=== PATIENT | male | born 1960 | race Caucasian/White ===

== ENCOUNTER 2019-12-15 20:19 | Inpatient (IN) | payer OTHER ==
[2019-12-15 20:33] VITALS: BMI 37.0
--- NOTE | 2019-12-15 20:36 | PDOC ---
Attending Attestation - Resident Resident Name: RashadRenan - ED Attending Attestation I have performed the following: I have examined & evaluated the patient, The case was reviewed & discussed with the resident, I agree w/resident's findings & plan - HPI HPI: 12/15/19 22:41 see resident hpi - Physicial Exam PE: 12/15/19 22:42 see resident exam - Medical Decision Making 12/15/19 22:42 59-year-old male sent from a care home facility with acute anemia requiring transfusion Patient has history of GI bleed in the past while on anticoagulation He has no additional complaints at this time Plan for admission for transfusion, coordinated with nephrology as patient is hemodialysis dependent Discharge - Discharge Information Problems reviewed: Yes Clinical Impression/Diagnosis: Anemia, Hemodialysis status Condition: Fair - Follow up/Referral Referrals: Jass Iraheta MD [Primary Care Provider] - - Patient Discharge Instructions - Post Discharge Activity
[2019-12-15 21:33] LABS: BASO % 0.7 % (0-2.0); EOS % 6.5 % (0-4.5); HEMATOCRIT 17.7 % (35.4-49); LYMPH % 35.4 % (8-40); MCH 30.9 pg (25.7-33.7); MCHC 34.3 g/dl (32.0-35.9); MEAN PLT VOLUME 8.8 fl (7.5-11.1); MONO % 11.5 % (3.8-10.2); NEUT % 45.9 % (42.8-82.8); PLATELET COUNT 86 K/MM3 (134-434); RBC 1.97 M/mm3 (4.00-5.60); RDW 13.8 % (11.9-15.9); WHITE BLOOD COUNT 4.5 K/mm3 (4.0-10.0)
[2019-12-15 21:41] LABS: HEMOGLOBIN 6.1 GM/dL (11.7-16.9)
[2019-12-15 21:50] LABS: INR 1.07 (0.83-1.09); PROTHROMBIN TIME (PATIENT) 12.6 SEC (9.7-13.0)
[2019-12-15 21:53] LABS: ACTIVATED PTT 22.2 SECONDS (25.2-36.5)
[2019-12-15 22:11] LABS: ALBUMIN 2.7 g/dl (3.4-5.0); ALK PHOS 90 U/L (45-117); BLOOD UREA NITROGEN 18.1 mg/dL (7-18); CALCIUM 8.2 mg/dL (8.5-10.1); CHLORIDE 98 mmol/L (98-107); CO2 29 mmol/L (21-32); CREATININE 1.9 mg/dL (0.55-1.3); GLUCOSE,RANDOM 117 mg/dL (74-106); SGOT/AST 28 U/L (15-37); SGPT/ALT 42 U/L (13-61); SODIUM 136 mmol/L (136-145); TOT PROT 5.9 g/dl (6.4-8.2)
[2019-12-15 22:13] LABS: ANION GAP 9 MMOL/L (8-16); BILIRUBIN,TOTAL 0.4 mg/dL (0.2-1)
[2019-12-15 22:18] LABS: POTASSIUM 2.9 mmol/L (3.5-5.1)
--- NOTE | 2019-12-15 22:29 | PDOC ---
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 Pt is otherwise asymptomatic - denies CP, dizziness, SOB, cough, urinary changes, fall, loss of consciousnes, palpitations, changes in strength or sensation, fevers, chills, nausea and vomiting. Pt was admitted [facility] in October and found to have MRSA endocarditis with septic emboli from AICD and pneumonia. Pt was then transferred to [facility]. At [facility] his AICD was removed; was found to have ALLYSON with possible ESRD and started on HD; and found to be anemic and have blood in the stool and was given 3 rounds of transfusion of pRBCs. Pt reports he was deconditioned and generally weak after his long hospitalization and was sent to his current rehab facility. Prior to his hospitalization, pt was ambulatory and lived alone his apartment in [place]. PMHX: as in [facility] PSHX: as in [facility] Meds: as per rehab facility charts Allergies: bactrim, pip-tazo, sulfamethaxazole Tob: denies Etoh: 1 or 2 drinks in the course of a year Rec drugs: denies PCP: Jass GRIMES GENERAL/CONSTITUTIONAL: No fever or chills. No weakness. HEAD, EYES, EARS, NOSE AND THROAT: No change in vision. No ear pain or discharge. No sore throat. CARDIOVASCULAR: No chest pain or shortness of breath RESPIRATORY: No cough, wheezing, or hemoptysis. GASTROINTESTINAL: No nausea, vomiting, diarrhea or constipation. GENITOURINARY: No dysuria, frequency, or change in urination. MUSCULOSKELETAL: No joint or muscle swelling or pain. No neck or back pain. SKIN: No rash NEUROLOGIC: No headache, vertigo, loss of consciousness, or change in strength /sensation. ENDOCRINE: No increased thirst. No abnormal weight change HEMATOLOGIC/LYMPHATIC: No easy bleeding, or history of blood clots. + anemia ALLERGIC/IMMUNOLOGIC: No hives or skin allergy. PE GENERAL: Awake, alert, and fully oriented, in no acute distress HEAD: No signs of trauma, normocephalic, atraumatic EYES: PERRLA, EOMI, sclera anicteric, conjunctiva clear ENT: Auricles normal inspection, hearing grossly normal, nares patent, oropharynx clear withoutexudates. Moist mucosa NECK: Normal ROM, supple, no lymphadenopathy, JVD, or masses. LUNGS: No distress, speaks full sentences, clear to auscultation bilaterally HEART: Regular rate and rhythm, normal S1 and S2, no murmurs, rubs or gallops, peripheral pulses normal and equal bilaterally. ABDOMEN: Soft, nontender, normoactive bowel sounds. No guarding, no rebound. No masses ANTHONY: external exam with some discoloration sacral area, skin tags, no external hemorrhoids; good rectal tone; moderate amount of stool in rectal vault; no palpable masses; no narinder blood EXTREMITIES : Normal inspection, Normal range of motion, no edema. No clubbing or cyanosis. NEUROLOGICAL: Cranial nerves II through XII grossly intact. Normal speech, normal gait, no focal sensorimotor deficits SKIN: Warm, Dry, normal turgor, no rashes or lesions noted 12/15/19 21:43 12/15/19 22:30 12/15/19 22:36 Past History - Medical History Allergies/Adverse Reactions: Allergies Allergy/AdvReac Type Severity Reaction Status Date / Time piperacillin [From Zosyn] Allergy Verified 12/16/19 19:56 sulfamethoxazole Allergy Verified 12/16/19 19:56 [From Bactrim] tazobactam [From Zosyn] Allergy Verified 12/16/19 19:56 trimethoprim [From Bactrim] Allergy Verified 12/16/19 19:56 Home Medications: Ambulatory Orders Acetaminophen [Tylenol] 650 mg PO QID PRN 12/15/19 Amiodarone HCl [Cordarone -] 200 mg PO DAILY 12/15/19 Linezolid [Zyvox] 600 mg PO BID 12/15/19 Magnesium Oxide [Mag-Ox -] 400 mg PO BID 12/15/19 Pantoprazole Sodium [Protonix] 40 mg PO BID 12/15/19 Tamsulosin HCl [Flomax] 0.4 mg PO DAILY 12/15/19 Vitamin B Comp W-C [Nephro-Vee -] 1 tablet PO DAILY 12/15/19 - Psycho-Social/Smoking History Smoking History: Never smoked - Substance Abuse Hx (Audit-C & DAST Scrn) How often the patient has a drink containing alcohol: Never Score: In Men: 4 or > Positive; In Women: 3 or > Positive: 0 Screen Result (Pos requires Nsg. Audit-10AR): Negative In the last yr the pt used illegal drug/Rx for NonMed reason: No Score: Yes response is considered Positive: 0 Screen Result (Positive result requires Nsg. DAST-10): Negative *Physical Exam - Vital Signs Last Vital Signs Temp Pulse Resp BP Pulse Ox 97.7 F 88 17 115/68 98 12/15/19 20:29 12/15/19 20:29 12/15/19 20:29 12/15/19 20:29 12/15/19 20:29 ED Treatment Course - LABORATORY CBC & Chemistry Diagram: 12/17/19 07:35 12/17/19 07:35 - ADDITIONAL ORDERS Additional order review: Laboratory Results 12/15/19 21:15 Stool Occult Blood Negative 12/15/19 20:50 RBC 1.97 L MCV 90.0 MCHC 34.3 RDW 13.8 MPV 8.8 Neutrophils % 45.9 Lymphocytes % 35.4 Monocytes % 11.5 H Eosinophils % 6.5 H Basophils % 0.7 Medical Decision Making - Medical Decision Making MDM 59 yo M with PMH of HTN, HLD, DM, Afib (previously with AICD), GERD, BPH, 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 DDX including but not limited to: lower GI bleed vs upper GI bleed vs bleeding from another source W/U: - CBC, CMP, coags - stool for occult blood - negative - Hb 6.1; K 2.9 - Will get in touch with nephrology regarding how much to transfuse before dialysis 12/15/19 22:36 12/15/19 22:43 Discharge - Discharge Information Problems reviewed: Yes Clinical Impression/Diagnosis: Anemia, Hemodialysis status Condition: Fair - Admission Yes - Follow up/Referral - Patient Discharge Instructions - Post Discharge Activity
--- NOTE | 2019-12-15 22:55 | PDOC ---
*Physical Exam - Vital Signs Last Vital Signs Temp Pulse Resp BP Pulse Ox 97.7 F 88 17 115/68 98 12/15/19 20:29 12/15/19 20:29 12/15/19 20:29 12/15/19 20:29 12/15/19 20:29 - Physical Exam 12/15/19 22:53 sign out was given by mid team. [facility] oncall neprologist Dr. Gonzalez, and his neurologist Dr. Coughlin. Dr. Galvin called back suggesting 1 L of transfusion for now. Then another unit in the morning. ED Treatment Course - LABORATORY CBC & Chemistry Diagram: 12/16/19 06:35 12/16/19 06:35 - ADDITIONAL ORDERS Additional order review: Laboratory Results 12/15/19 12/15/19 12/15/19 21:15 20:50 20:50 PT with INR 12.60 INR 1.07 PTT (Actin FS) 22.2 L Sodium 136 Potassium 2.9 L* Chloride 98 Carbon Dioxide 29 Anion Gap 9 BUN 18.1 H Creatinine 1.9 H Est GFR (CKD-EPI)AfAm 43.14 Est GFR (CKD-EPI)NonAf 37.22 Random Glucose 117 H Calcium 8.2 L Total Bilirubin 0.4 AST 28 ALT 42 Alkaline Phosphatase 90 Troponin I < 0.02 Total Protein 5.9 L Albumin 2.7 L Stool Occult Blood Negative 12/15/19 20:50 RBC 1.97 L MCV 90.0 MCHC 34.3 RDW 13.8 MPV 8.8 Neutrophils % 45.9 Lymphocytes % 35.4 Monocytes % 11.5 H Eosinophils % 6.5 H Basophils % 0.7 Discharge - Discharge Information Problems reviewed: Yes Clinical Impression/Diagnosis: Anemia, Hemodialysis status Condition: Fair - Follow up/Referral - Patient Discharge Instructions - Post Discharge Activity
[2019-12-15] MEDS ORDERED: POTASSIUM CHLORIDE TABS 20 MEQ TABLET.ER (FP) PO ONE (23:05)
[2019-12-15] MEDS ORDERED: POTASSIUM CHLORIDE ORAL LIQUID 20 MEQ/15 ML ONE (23:07)
--- NOTE | 2019-12-16 04:32 | HP ---
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 Who presents to the ED from subacute rehab facility with low Hgb level. Patient was admitted to [facility] last October 2019, and found to have MRSA Endocarditis with Septic Emboli from AICD and Pneumonia. Patient was then transferred to [facility]. At [facility], his AICD was removed; was found to have ALLYSON with possible ESRD and started on HD; and found to be anemic and have blood in the stool and was given 3 rounds of transfusion of pRBCs. Patient repo rts that he was deconditioned and generally weak after his long hospitalization and was sent to his current rehab facility. Prior to his hospitalization, pt was ambulatory and lived alone his apartment in [place]. Patient denies fever, chills, SOB, dizziness, LAKHANI, CP, palpitations, AP, N/V/D, melena, hematochezia, hematuria, dysuria. History Source: Patient, Transfer Record Limitations to Obtaining History: No Limitations - Past Medical History Cardiovascular: Yes: AFIB, HTN, Hyperlipdemia, Other (Endocarditis) Gastrointestinal: Yes: GERD Renal/: Yes: BPH, Hemodialysis Infectious Disease: Yes: MRSA - Past Surgical History Past Surgical History: Yes: AICD Additional Past Surgical History: AICD removal Permacath - Smoking History Smoking history: Never smoked - Alcohol/Substance Use Hx Alcohol Use: No History of Substance Use: reports: None - Social History Usual Living Arrangement: Yes: Shelter (Rehab) ADL: Support Services History of Recent Travel: No Home Medications - Allergies Allergies/Adverse Reactions: Allergies Allergy/AdvReac Type Severity Reaction Status Date / Time No Known Allergies Allergy Verified 12/15/19 20:33 - Home Medications Home Medications: Ambulatory Orders Acetaminophen [Tylenol] 650 mg PO QID PRN 12/15/19 Amiodarone HCl [Cordarone -] 200 mg PO DAILY 12/15/19 Linezolid [Zyvox] 600 mg PO BID 12/15/19 Magnesium Oxide [Mag-Ox -] 400 mg PO BID 12/15/19 Pantoprazole Sodium [Protonix] 40 mg PO BID 12/15/19 Tamsulosin HCl [Flomax] 0.4 mg PO DAILY 12/15/19 Vitamin B Comp W-C [Nephro-Vee -] 1 tablet PO DAILY 12/15/19 Family Medical History Family History: Unremarkable Review of Systems - Review of Systems Constitutional: reports: Weakness Eyes: reports: No Symptoms HENT: reports: No Symptoms Neck: reports: No Symptoms Cardiovascular: reports: No Symptoms Respiratory: reports: No Symptoms Gastrointestinal: reports: No Symptoms Genitourinary: reports: No Symptoms Breasts: reports: No Symptoms Reported Musculoskeletal: reports: No Symptoms Integumentary: reports: Pallor Neurological: reports: No Symptoms Endocrine: reports: No Symptoms Hematology/Lymphatic: reports: No Symptoms Psychiatric: reports: No Symptoms Physical Examination Vital Signs: Vital Signs Temperature 98.1 F 12/16/19 01:50 Pulse Rate 88 12/16/19 04:25 Respiratory Rate 12/16/19 04:25 Blood Pressure 134/75 12/16/19 04:25 O2 Sat by Pulse Oximetry (%) 98 12/16/19 04:25 Constitutional: Yes: No Distress, Calm, Obese, Pallor Eyes: Yes: Conjunctiva Clear (pale), EOM Intact HENT: Yes: Atraumatic, Normocephalic, Rhinnorhea Neck: Yes: Trachea Midline Cardiovascular: Yes: Pulse Irregular, Murmur, S1, S2 Respiratory: Yes: Diminished (bases) Gastrointestinal: Yes: Soft, Hypoactive Bowel Sounds ...Rectal Exam: Yes: Guaiac Negative Renal/: Yes: WNL Breast(s): Yes: WNL Musculoskeletal: Yes: WNL Extremities: Yes: WNL Edema: No Peripheral Pulses WNL: Yes Neurological: Yes: WNL, Alert, Oriented, Cran Nerves II-XII Intact ...Motor Strength: WNL Psychiatric: Yes: WNL, Alert, Oriented Labs: CBC, BMP 12/15/19 20:50 12/15/19 20:50 Laboratory Results - last 24 hr 12/15/19 12/15/19 12/15/19 20:50 20:50 20:50 WBC 4.5 RBC 1.97 L Hgb 6.1 L* Hct 17.7 L MCV 90.0 MCH 30.9 MCHC 34.3 RDW 13.8 Plt Count 86 L MPV 8.8 Absolute Neuts (auto) 2.1 Neutrophils % 45.9 Lymphocytes % 35.4 Monocytes % 11.5 H Eosinophils % 6.5 H Basophils % 0.7 Nucleated RBC % 0 PT with INR 12.60 INR 1.07 PTT (Actin FS) 22.2 L Sodium 136 Potassium 2.9 L* Chloride 98 Carbon Dioxide 29 Anion Gap 9 BUN 18.1 H Creatinine 1.9 H Est GFR (CKD-EPI)AfAm 43.14 Est GFR (CKD-EPI)NonAf 37.22 Random Glucose 117 H Calcium 8.2 L Total Bilirubin 0.4 AST 28 ALT 42 Alkaline Phosphatase 90 Troponin I < 0.02 Total Protein 5.9 L Albumin 2.7 L Stool Occult Blood Blood Type Antibody Screen Crossmatch 12/15/19 12/15/19 12/15/19 21:15 23:40 23:46 WBC RBC Hgb Hct MCV MCH MCHC RDW Plt Count MPV Absolute Neuts (auto) Neutrophils % Lymphocytes % Monocytes % Eosinophils % Basophils % Nucleated RBC % PT with INR INR PTT (Actin FS) Sodium Potassium Chloride Carbon Dioxide Anion Gap BUN Creatinine Est GFR (CKD-EPI)AfAm Est GFR (CKD-EPI)NonAf Random Glucose Calcium Total Bilirubin AST ALT Alkaline Phosphatase Troponin I Total Protein Albumin Stool Occult Blood Negative Blood Type A POSITIVE A POSITIVE Antibody Screen Negative Crossmatch See Detail Intake & Output 12/13/19 12/14/19 12/15/19 12/16/19 23:59 23:59 23:59 23:59 Weight 120.656 kg Current Medications Generic Name Dose Route Start Last Admin Trade Name Freq PRN Reason Stop Dose Admin Amiodarone HCl 200 mg 12/16/19 10:00 Cordarone - PO DAILY [facility]EDRIC Linezolid 600 mg 12/16/19 10:00 Zyvox (Restricted To Id) - PO BID [facility]RIC Magnesium Oxide 400 mg 12/16/19 10:00 Mag-Ox - PO BID CEDRIC Multivit/Ca Carb/B Cmplx/FA/Prenat 1 tablet 12/16/19 10:00 Nephro-Vee - PO DAILY CEDRIC Pantoprazole Sodium 40 mg 12/16/19 10:00 Protonix - PO BID [facility] Tamsulosin HCl 0.4 mg 12/16/19 08:30 Flomax - PO DAILY@0830 [facility] Imaging - Results Chest X-ray: Report Reviewed, Image Reviewed EKG: Image Reviewed Problem List - Problems (1) Anemia Code(s): D64.9 - ANEMIA, UNSPECIFIED (2) ESRD (end stage renal disease) on dialysis Code(s): N18.6 - END STAGE RENAL DISEASE; Z99.2 - DEPENDENCE ON RENAL DIALYSIS (3) HTN (hypertension) Code(s): I10 - ESSENTIAL (PRIMARY) HYPERTENSION (4) HLD (hyperlipidemia) Code(s): E78.5 - HYPERLIPIDEMIA, UNSPECIFIED (5) Diabetes mellitus Code(s): E11.9 - TYPE 2 DIABETES MELLITUS WITHOUT COMPLICATIONS (6) A-fib Code(s): I48.91 - UNSPECIFIED ATRIAL FIBRILLATION (7) Hypokalemia Code(s): E87.6 - HYPOKALEMIA (8) BPH (benign prostatic hyperplasia) Code(s): N40.0 - BENIGN PROSTATIC HYPERPLASIA WITHOUT LOWER URINRY TRACT SYMP (9) Hx MRSA infection Code(s): Z86.14 - PERSONAL HISTORY OF METHICILLIN RESIS STAPH INFECTION (10) Encounter for screening laboratory testing for COVID-19 virus Code(s): Z11.59 - ENCOUNTER FOR SCREENING FOR OTHER VIRAL DISEASES Assessment/Plan This is a 59 y/o male with a PMHx of HTN, HLD, DM, Afib (previously with AICD), GERD, BPH, 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 Admitted to Telemetry for Anemia, ESRD, Hypokalemia for further evaluation of their emergent condition. Plan: Tele monitoring PRBCs pending Appreciate Nephrology consult for HD Management Stool Occult- negative Monitor CBC, CMP Chest Xray reviewed EKG reviewed BGMs Continue home meds with parameters COVID Screening- Low Risk, COVID PCR-pending, Isolation Precautions FEN- Replete lytes prn, Renal Diet DVT ppx- OOB, SCDs, Hold AC secondary to Anemia Dispo: Requires Inpatient Care Visit type - Emergency Visit Emergency Visit: Yes ED Registration Date: 12/15/19 Care time: The patient presented to the Emergency Department on the above date and was hospitalized for further evaluation of their emergent condition. - New Patient This patient is new to me today: Yes Date on this admission: 12/15/19 - Critical Care Critical Care patient: No
[2019-12-16 05:20] LABS: EPI CELLS 8 /uL (0-25.1); HYALINE CASTS 2 /uL (0-3.1); URINE APPEARANCE CLEAR; URINE BACTERIA 3 /uL (0-1359); URINE BILIRUBIN NEGATIVE (NEGATIVE); URINE COLOR YELLOW; URINE GLUCOSE (UA) NEGATIVE (NEGATIVE); URINE KETONE NEGATIVE (NEGATIVE); URINE LEUK ESTERASE 1+ (NEGATIVE); URINE NITRITE NEGATIVE (NEGATIVE); URINE PROTEIN NEGATIVE (NEGATIVE); URINE UROBILINOGEN 0.2 mg/dL (0.2-1.0); URINE WBC 30 /uL (0-25.8)
[2019-12-16 05:54] LABS: URINE RBC 177 /uL (0-23.9)
[2019-12-16 08:31] LABS: BASO % 0.7 % (0-2.0); EOS % 7.6 % (0-4.5); HEMATOCRIT 19.7 % (35.4-49); LYMPH % 32.1 % (8-40); MCH 30.9 pg (25.7-33.7); MCHC 34.3 g/dl (32.0-35.9); MEAN CELL VOLUME 89.9 fl (80-96); MEAN PLT VOLUME 8.5 fl (7.5-11.1); MONO % 14.2 % (3.8-10.2); NEUT % 45.4 % (42.8-82.8); PLATELET COUNT 86 K/MM3 (134-434); RBC 2.19 M/mm3 (4.00-5.60); RDW 13.7 % (11.9-15.9); WHITE BLOOD COUNT 4.5 K/mm3 (4.0-10.0)
[2019-12-16 08:40] LABS: HEMOGLOBIN 6.8 GM/dL (11.7-16.9)
[2019-12-16 08:41] LABS: ALBUMIN 2.7 g/dl (3.4-5.0); BILIRUBIN,TOTAL 0.8 mg/dL (0.2-1); BLOOD UREA NITROGEN 18.9 mg/dL (7-18); CALCIUM 8.1 mg/dL (8.5-10.1); CREATININE 1.9 mg/dL (0.55-1.3); TOT PROT 5.9 g/dl (6.4-8.2)
[2019-12-16] MEDS ORDERED: MAGNESIUM OXIDE 400 MG TABLET (FP) ONE (09:33)
[2019-12-16] MEDS ORDERED: PANTOPRAZOLE 40 MG TABLET ONE (09:33)
[2019-12-16] MEDS ORDERED: TAMSULOSIN HCL 0.4 MG CAP ONE (09:34)
[2019-12-16] MEDS ORDERED: AMIODARONE HCL 200 MG TABLET ONE (09:34)
[2019-12-16] MEDS: TAMSULOSIN HCL 0.4 MG CAP PO SCH (09:40)
[2019-12-16] MEDS: AMIODARONE HCL 200 MG TABLET PO SCH (09:41)
[2019-12-16] MEDS: MAGNESIUM OXIDE 400 MG TABLET (FP) PO SCH ×2 (09:41→21:34)
[2019-12-16] MEDS: PANTOPRAZOLE 40 MG TABLET PO SCH ×2 (09:41→21:34)
--- NOTE | 2019-12-16 11:21 | CON.NEP ---
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 Who presents to the ED from subacute rehab facility with low Hgb level. Patient was admitted to [facility] last October 2019, and found to have MRSA Endocarditis with Septic Emboli from AICD and Pneumonia. Patient was then transferred to [facility]. At [facility], his AICD was removed; was found to have ALLYSON with possible ESRD and started on HD; and found to be anemic and have blood in the stool and was given 3 rounds of transfusion of pRBCs. Patient reports that he was deconditioned and generally weak after his long hospitalization and was sent to his current rehab facility. Prior to his hospitalization, pt was ambulatory and lived alone his apartment in [place]. Patient denies fever, chills, SOB, dizziness, LAKHANI, CP, palpitations, AP, N/V/D, melena, hematochezia, hematuria, dysuria. Pt is known to me from [facility]. He has been on xarelto, eliquis and coumadin and has bled on all. He is chronically anticoagulated for atrial fibrillationm. Denies any complaints - Past Medical History Cardio/Vascular: Yes: AFIB, HTN, Hyperlipdemia, Other (Endocarditis) Gastrointestinal: Yes: GERD Renal/: Yes: BPH, Hemodialysis Infectious Disease: Yes: MRSA - Past Surgical History Past Surgical History: Yes: AICD - Alcohol/Substance Use Hx Alcohol Use: No History of Substance Use: reports: None - Smoking History Smoking history: Never smoked - Social History ADL: Support Services History of Recent Travel: No Home Medications - Allergies Allergies/Adverse Reactions: Allergies Allergy/AdvReac Type Severity Reaction Status Date / Time No Known Allergies Allergy Verified 12/15/19 20:33 - Home Medications Home Medications: Ambulatory Orders Acetaminophen [Tylenol] 650 mg PO QID PRN 12/15/19 Amiodarone HCl [Cordarone -] 200 mg PO DAILY 12/15/19 Linezolid [Zyvox] 600 mg PO BID 12/15/19 Magnesium Oxide [Mag-Ox -] 400 mg PO BID 12/15/19 Pantoprazole Sodium [Protonix] 40 mg PO BID 12/15/19 Tamsulosin HCl [Flomax] 0.4 mg PO DAILY 12/15/19 Vitamin B Comp W-C [Nephro-Vee -] 1 tablet PO DAILY 12/15/19 Review of Systems - Review of Systems Constitutional: reports: No Symptoms Eyes: reports: No Symptoms HENT: reports: No Symptoms Neck: reports: No Symptoms Cardiovascular: reports: No Symptoms Respiratory: reports: No Symptoms Gastrointestinal: reports: No Symptoms Genitourinary: reports: No Symptoms Nephrology Consult - Height Height: 5 ft 11 in - Weight Weight: 266 lb - BMI Body Mass Index (BMI): 37.0 - Lab Results CBC,BMP: CBC, BMP 12/16/19 06:35 12/16/19 06:35 Anion Gap: Anion Gap Anion Gap 6 MMOL/L (8-16) L 12/16/19 06:35 - Imaging Chest X-ray: Report Reviewed - Physical Examination Vital Signs: Vital Signs Temperature 97.5 F L 12/16/19 09:22 Pulse Rate 106 H 12/16/19 09:22 Respiratory Rate 18 12/16/19 09:22 Blood Pressure 140/60 12/16/19 09:22 O2 Sat by Pulse Oximetry (%) 100 12/16/19 09:22 Constitutional: Yes: Well Nourished, No Distress Eyes: Yes: Conjunctiva Clear HENT: Yes: Atraumatic, Normocephalic Neck: Yes: Supple, Trachea Midline Cardiovascular: Yes: Pulse Irregular Respiratory: Yes: Regular, CTA Bilaterally Gastrointestinal: Yes: Normal Bowel Sounds Renal/: Yes: WNL Access for Hemodialysis: Permacath Extremities: Yes: WNL Edema: No Integumentary: Yes: WNL Neurological: Yes: Alert, Oriented Psychiatric: Yes: Alert, Oriented Assessment/Plan IMPRESSION Pt developed ALLYSON when he was septic and seems to be improving. Todays creatinine is only 1.9 and 2 weeks ago was over 3. I believe he does not need HD TIW and may benefit from an incremental approach to dialytic treatments. incremental dialysis aims to protect Residual kidney function PLAN hold hd today repeat creat tomorrow I have ordered 2 units of prbc he may need hd for fluid removal if diuretic resistant or if azotemia worsens MV
[2019-12-16] MEDS ORDERED: PT OWN MED DRAWER 7, Y5N ONE (11:53)
[2019-12-16] MEDS: LINEZOLID 600 MG TABLET (RESTRICTED TO ID) PO SCH ×2 (12:16→21:34)
[2019-12-16] MEDS: VITAMIN B COMP W-C 1 EA TABLET (NEPHRO-VITE) PO SCH (12:16)
--- NOTE | 2019-12-16 12:55 | PN ---
Progress Note (short form) - Note Progress Note: received 1 unit transfusion so far. No distress, no blood in stools not on anticoagulation for atrial fibrillation as he had severe anemia in the last admission at [facility] Patient had endoscopy and colonoscopyunremarkable findiner patient Vital Signs - 24 hr 12/15/19 12/15/19 12/15/19 20:29 21:25 23:49 Temperature 97.7 F Pulse Rate 88 Pulse Rate [ 100 H Right Radial] Respiratory 17 18 Rate Blood Pressure 115/68 Blood Pressure 119/64 [Right Arm] O2 Sat by Pulse 98 98 98 Oximetry (%) 12/16/19 12/16/19 12/16/19 01:35 01:50 04:25 Temperature 98.0 F 98.1 F Pulse Rate Pulse Rate [ 101 H 97 H 88 Right Radial] Respiratory 18 18 20 Rate Blood Pressure Blood Pressure 135/88 129/83 134/75 [Right Arm] O2 Sat by Pulse 100 98 98 Oximetry (%) 12/16/19 12/16/19 12/16/19 05:36 07:52 09:22 Temperature 97.9 F 97.5 F L Pulse Rate Pulse Rate [ 96 H 106 H Right Radial] Respiratory 20 20 18 Rate Blood Pressure Blood Pressure 128/86 140/60 [Right Arm] O2 Sat by Pulse 98 97 100 Oximetry (%) Current Medications Generic Name Dose Route Start Last Admin Trade Name Freq PRN Reason Stop Dose Admin Amiodarone HCl 200 mg 12/16/19 10:00 12/16/19 09:41 Cordarone - PO 200 mg DAILY [facility] Administration Linezolid 600 mg 12/16/19 10:00 12/16/19 12:16 Zyvox (Restricted To Id) - PO 600 mg BID [facility] Administration Magnesium Oxide 400 mg 12/16/19 10:00 12/16/19 09:41 Mag-Ox - PO 400 mg BID [facility] Administration Multivit/Ca Carb/B Cmplx/FA/Prenat 1 tablet 12/16/19 10:00 12/16/19 12:16 Nephro-Vee - PO 1 tablet DAILY [facility] Administration Pantoprazole Sodium 40 mg 12/16/19 10:00 12/16/19 09:41 Protonix - PO 40 mg BID [facility] Administration Tamsulosin HCl 0.4 mg 12/16/19 08:30 12/16/19 09:40 Flomax - PO 0.4 mg DAILY@0830 [facility] Administration Laboratory Results - last 24 hr 12/15/19 12/15/19 12/15/19 20:50 20:50 20:50 WBC 4.5 RBC 1.97 L Hgb 6.1 L* Hct 17.7 L MCV 90.0 MCH 30.9 MCHC 34.3 RDW 13.8 Plt Count 86 L MPV 8.8 Absolute Neuts (auto) 2.1 Neutrophils % 45.9 Lymphocytes % 35.4 Monocytes % 11.5 H Eosinophils % 6.5 H Basophils % 0.7 Nucleated RBC % 0 PT with INR 12.60 INR 1.07 PTT (Actin FS) 22.2 L Sodium 136 Potassium 2.9 L* Chloride 98 Carbon Dioxide 29 Anion Gap 9 BUN 18.1 H Creatinine 1.9 H Est GFR (CKD-EPI)AfAm 43.14 Est GFR (CKD-EPI)NonAf 37.22 Random Glucose 117 H Calcium 8.2 L Total Bilirubin 0.4 AST 28 ALT 42 Alkaline Phosphatase 90 Troponin I < 0.02 Total Protein 5.9 L Albumin 2.7 L Urine Color Urine Appearance Urine pH Ur Specific [place] Urine Protein Urine Glucose (UA) Urine Ketones Urine Blood Urine Nitrite Urine Bilirubin Urine Urobilinogen Ur Leukocyte Esterase Urine WBC (Auto) Urine RBC (Auto) Urine Casts (Auto) U Epithel Cells (Auto) Urine Bacteria (Auto) Stool Occult Blood Blood Type Antibody Screen Crossmatch 12/15/19 12/15/19 12/15/19 21:15 23:40 23:46 WBC RBC Hgb Hct MCV MCH MCHC RDW Plt Count MPV Absolute Neuts (auto) Neutrophils % Lymphocytes % Monocytes % Eosinophils % Basophils % Nucleated RBC % PT with INR INR PTT (Actin FS) Sodium Potassium Chloride Carbon Dioxide Anion Gap BUN Creatinine Est GFR (CKD-EPI)AfAm Est GFR (CKD-EPI)NonAf Random Glucose Calcium Total Bilirubin AST ALT Alkaline Phosphatase Troponin I Total Protein Albumin Urine Color Urine Appearance Urine pH Ur Specific [place] Urine Protein Urine Glucose (UA) Urine Ketones Urine Blood Urine Nitrite Urine Bilirubin Urine Urobilinogen Ur Leukocyte Esterase Urine WBC (Auto) Urine RBC (Auto) Urine Casts (Auto) U Epithel Cells (Auto) Urine Bacteria (Auto) Stool Occult Blood Negative Blood Type A POSITIVE A POSITIVE Antibody Screen Negative Crossmatch See Detail 12/16/19 12/16/19 12/16/19 03:40 06:35 06:35 WBC 4.5 RBC 2.19 L Hgb 6.8 L* Hct 19.7 L MCV 89.9 MCH 30.9 MCHC 34.3 RDW 13.7 Plt Count 86 L MPV 8.5 Absolute Neuts (auto) 2.0 Neutrophils % 45.4 Lymphocytes % 32.1 Monocytes % 14.2 H Eosinophils % 7.6 H Basophils % 0.7 Nucleated RBC % 0 PT with INR INR PTT (Actin FS) Sodium 140 Potassium 3.0 L Chloride 102 Carbon Dioxide 32 Anion Gap 6 L BUN 18.9 H Creatinine 1.9 H Est GFR (CKD-EPI)AfAm 43.14 Est GFR (CKD-EPI)NonAf 37.22 Random Glucose 90 Calcium 8.1 L Total Bilirubin 0.8 AST 22 ALT 41 Alkaline Phosphatase 85 Troponin I Total Protein 5.9 L Albumin 2.7 L Urine Color Yellow Urine Appearance Clear Urine pH 5.0 Ur Specific [place] 1.006 L Urine Protein Negative Urine Glucose (UA) Negative Urine Ketones Negative Urine Blood 3+ H Urine Nitrite Negative Urine Bilirubin Negative Urine Urobilinogen 0.2 Ur Leukocyte Esterase 1+ H Urine WBC (Auto) 30 Urine RBC (Auto) 177 Urine Casts (Auto) 2 U Epithel Cells (Auto) 8 Urine Bacteria (Auto) 3 Stool Occult Blood Blood Type Antibody Screen Crossmatch S1, S2 regular. Lungs clear. Abdomen soft, nontender. No edema plan Continue linezolid for MRSA endocarditis/bacteremia. Transfuse prbc today. Dialysis as per investigation division sergeant Stool guaiac is negative Check CBC Problem List - Problems (1) A-fib Code(s): I48.91 - UNSPECIFIED ATRIAL FIBRILLATION (2) Anemia Code(s): D64.9 - ANEMIA, UNSPECIFIED (3) BPH (benign prostatic hyperplasia) Code(s): N40.0 - BENIGN PROSTATIC HYPERPLASIA WITHOUT LOWER URINRY TRACT SYMP (4) Diabetes mellitus Code(s): E11.9 - TYPE 2 DIABETES MELLITUS WITHOUT COMPLICATIONS (5) ESRD (end stage renal disease) on dialysis Code(s): N18.6 - END STAGE RENAL DISEASE; Z99.2 - DEPENDENCE ON RENAL DIALYSIS (6) HLD (hyperlipidemia) Code(s): E78.5 - HYPERLIPIDEMIA, UNSPECIFIED (7) HTN (hypertension) Code(s): I10 - ESSENTIAL (PRIMARY) HYPERTENSION
--- NOTE | 2019-12-16 15:27 | EKG ---
Test Reason : Blood Pressure : / mmHG Vent. Rate : 108 BPM Atrial Rate : 113 BPM P-R Int : 000 ms QRS Dur : 116 ms QT Int : 372 ms P-R-T Axes : 000 013 011 degrees QTc Int : 498 ms ATRIAL FIBRILLATION WITH RAPID VENTRICULAR RESPONSE WITH PREMATURE VENTRICULAR OR ABERRANTLY CONDUCTED COMPLEXES INCOMPLETE LEFT BUNDLE BRANCH BLOCK NONSPECIFIC T WAVE ABNORMALITY ABNORMAL ECG NO PREVIOUS ECGS AVAILABLE Confirmed by YUSUF ENG MD ([id number]) on 12/16/2019 3:27:41 PM Referred By: Confirmed By:YUSUF ENG MD
[2019-12-17 09:20] LABS: ALBUMIN 2.9 g/dl (3.4-5.0); BLOOD UREA NITROGEN 20.4 mg/dL (7-18); CALCIUM 8.2 mg/dL (8.5-10.1); CREATININE 1.9 mg/dL (0.55-1.3); POTASSIUM 3.1 mmol/L (3.5-5.1); TOT PROT 6.2 g/dl (6.4-8.2)
[2019-12-17 09:22] LABS: BASO % 0.5 % (0-2.0); HEMATOCRIT 26.2 % (35.4-49); LYMPH % 25.2 % (8-40); MCH 30.4 pg (25.7-33.7); MCHC 34.2 g/dl (32.0-35.9); MEAN PLT VOLUME 8.5 fl (7.5-11.1); MONO % 12.9 % (3.8-10.2); NEUT % 54.4 % (42.8-82.8); PLATELET COUNT 108 K/MM3 (134-434); RBC 2.95 M/mm3 (4.00-5.60); RDW 14.2 % (11.9-15.9); WHITE BLOOD COUNT 7.2 K/mm3 (4.0-10.0)
[2019-12-17] MEDS ORDERED: PT OWN MED DRAWER 7, Y5N ONE ×3 (10:34→21:23)
[2019-12-17] MEDS: VITAMIN B COMP W-C 1 EA TABLET (NEPHRO-VITE) PO SCH (11:01)
[2019-12-17] MEDS: TAMSULOSIN HCL 0.4 MG CAP PO SCH (11:01)
[2019-12-17] MEDS: PANTOPRAZOLE 40 MG TABLET PO SCH ×2 (11:01→21:46)
[2019-12-17] MEDS: LINEZOLID 600 MG TABLET (RESTRICTED TO ID) PO SCH ×2 (11:01→21:46)
[2019-12-17] MEDS: AMIODARONE HCL 200 MG TABLET PO SCH (11:01)
[2019-12-17] MEDS: MAGNESIUM OXIDE 400 MG TABLET (FP) PO SCH ×2 (11:01→21:46)
--- NOTE | 2019-12-17 12:34 | PN ---
Progress Note (short form) - Note Progress Note: RENAL Pt is awake and laert has no complaints says he is making plenty of urine Last Vital Signs Temp Pulse Resp BP Pulse Ox 98.4 F 96 H 20 149/84 99 12/17/19 10:00 12/17/19 10:00 12/17/19 10:00 12/17/19 10:00 12/17/19 10:00 lungs clear cvs s1s2 rr abd soft ext no edema neuro a+ox3 CBC, BMP 12/17/19 07:35 12/17/19 07:35 Current Medications Generic Name Dose Route Start Last Admin Trade Name Freq PRN Reason Stop Dose Admin Amiodarone HCl 200 mg 12/16/19 10:00 12/17/19 11:01 Cordarone - PO 200 mg DAILY [facility] Administration Linezolid 600 mg 12/16/19 10:00 12/17/19 11:01 Zyvox (Restricted To Id) - PO 600 mg BID [facility] Administration Magnesium Oxide 400 mg 12/16/19 10:00 12/17/19 11:01 Mag-Ox - PO 400 mg BID [facility] Administration Multivit/Ca Carb/B Cmplx/FA/Prenat 1 tablet 12/16/19 10:00 12/17/19 11:01 Nephro-Vee - PO 1 tablet DAILY [facility] Administration Pantoprazole Sodium 40 mg 12/16/19 10:00 12/17/19 11:01 Protonix - PO 40 mg BID [facility] Administration Tamsulosin HCl 0.4 mg 12/16/19 08:30 12/17/19 11:01 Flomax - PO 0.4 mg DAILY@0830 [facility] Administration IMPRESSION ALLYSON/CKD allyson seems better anemia from blood loss while anticoagulated allyson during previous hospitalization when he had septic shock and endocarditis PLAN continue current management does not need hd would monitor renal function I have asked dialysis nurse to change his dressing If 1 wek passes and he requires no hd would coni DAMON
[2019-12-17] MEDS ORDERED: POTASSIUM CHLORIDE TABS 20 MEQ TABLET.ER (FP) PO ONE (12:35)
--- NOTE | 2019-12-17 14:34 | PN ---
Progress Note, Physician History of Present Illness: pt seen/ examined chart reviewed feels well no complains got transfusion - Current Medication List Current Medications: Active Medications Amiodarone HCl (Cordarone -) 200 mg PO DAILY [facility] Last Admin: 12/17/19 11:01 Dose: 200 mg Documented by: Linezolid (Zyvox (Restricted To Id) -) 600 mg PO BID [facility] Last Admin: 12/17/19 11:01 Dose: 600 mg Documented by: Magnesium Oxide (Mag-Ox -) 400 mg PO BID [facility] Last Admin: 12/17/19 11:01 Dose: 400 mg Documented by: Multivit/Ca Carb/B Cmplx/FA/Prenat (Nephro-Vee -) 1 tablet PO DAILY [facility] Last Admin: 12/17/19 11:01 Dose: 1 tablet Documented by: Pantoprazole Sodium (Protonix -) 40 mg PO BID [facility] Last Admin: 12/17/19 11:01 Dose: 40 mg Documented by: Tamsulosin HCl (Flomax -) 0.4 mg PO DAILY@0830 [facility] Last Admin: 12/17/19 11:01 Dose: 0.4 mg Documented by: - Objective Vital Signs: Vital Signs Temperature 98.4 F 12/17/19 10:00 Pulse Rate 96 H 12/17/19 10:00 Respiratory Rate 20 12/17/19 10:00 Blood Pressure 149/84 12/17/19 10:00 O2 Sat by Pulse Oximetry (%) 99 12/17/19 10:00 Constitutional: Yes: No Distress. No: Calm Neck: Yes: Supple Cardiovascular: Yes: Pulse Irregular Respiratory: Yes: CTA Bilaterally Gastrointestinal: Yes: Soft Edema: No Neurological: Yes: Alert Labs: CBC, BMP 12/17/19 07:35 12/17/19 07:35 INR, PTT INR 1.07 (0.83-1.09) 12/15/19 20:50 Assessment/Plan Clinically Stable Stable for d/c back to snf D/w human resources office manager Will need authorization from Insurance Will follow
[2019-12-18] MEDS ORDERED: PT OWN MED DRAWER 7, Y5N ONE ×2 (09:34→21:20)
[2019-12-18] MEDS: VITAMIN B COMP W-C 1 EA TABLET (NEPHRO-VITE) PO SCH (09:37)
[2019-12-18] MEDS: TAMSULOSIN HCL 0.4 MG CAP PO SCH (09:37)
[2019-12-18] MEDS: AMIODARONE HCL 200 MG TABLET PO SCH (09:37)
[2019-12-18] MEDS: LINEZOLID 600 MG TABLET (RESTRICTED TO ID) PO SCH ×2 (09:37→22:45)
[2019-12-18] MEDS: MAGNESIUM OXIDE 400 MG TABLET (FP) PO SCH ×2 (09:37→22:45)
[2019-12-18] MEDS: PANTOPRAZOLE 40 MG TABLET PO SCH ×2 (09:37→22:45)
--- NOTE | 2019-12-18 11:56 | PN ---
Progress Note (short form) - Note Progress Note: last HD on Friday no SOB feels well Vital Signs - 24 hr 12/17/19 12/17/19 12/17/19 18:00 21:00 22:00 Temperature 98.7 F 98.6 F Pulse Rate 110 H 96 H Respiratory 20 20 20 Rate Blood Pressure 139/76 137/82 O2 Sat by Pulse 97 97 Oximetry (%) 12/18/19 12/18/19 02:00 05:47 Temperature 97.7 F 98 F Pulse Rate 101 H 85 Respiratory 20 20 Rate Blood Pressure 138/89 137/85 O2 Sat by Pulse 99 96 Oximetry (%) Current Medications Generic Name Dose Route Start Last Admin Trade Name Freq PRN Reason Stop Dose Admin Amiodarone HCl 200 mg 12/16/19 10:00 12/18/19 09:37 Cordarone - PO 200 mg DAILY [facility] Administration Linezolid 600 mg 12/16/19 10:00 12/18/19 09:37 Zyvox (Restricted To Id) - PO 600 mg BID [facility] Administration Magnesium Oxide 400 mg 12/16/19 10:00 12/18/19 09:37 Mag-Ox - PO 400 mg BID [facility] Administration Multivit/Ca Carb/B Cmplx/FA/Prenat 1 tablet 12/16/19 10:00 12/18/19 09:37 Nephro-Vee - PO 1 tablet DAILY [facility] Administration Pantoprazole Sodium 40 mg 12/16/19 10:00 12/18/19 09:37 Protonix - PO 40 mg BID [facility] Administration Tamsulosin HCl 0.4 mg 12/16/19 08:30 12/18/19 09:37 Flomax - PO 0.4 mg DAILY@0830 [facility] Administration S1, S2 regular. Lungs clear. Abdomen soft, nontender. No edema plan Continue linezolid for MRSA endocarditis/bacteremia. s/p PRBC Dialysis as per broadcast operations engineer Stool guaiac is negative Check CBC dc planning pending insurance approval Problem List - Problems (1) A-fib Code(s): I48.91 - UNSPECIFIED ATRIAL FIBRILLATION (2) Anemia Code(s): D64.9 - ANEMIA, UNSPECIFIED (3) BPH (benign prostatic hyperplasia) Code(s): N40.0 - BENIGN PROSTATIC HYPERPLASIA WITHOUT LOWER URINRY TRACT SYMP (4) Diabetes mellitus Code(s): E11.9 - TYPE 2 DIABETES MELLITUS WITHOUT COMPLICATIONS (5) ESRD (end stage renal disease) on dialysis Code(s): N18.6 - END STAGE RENAL DISEASE; Z99.2 - DEPENDENCE ON RENAL DIALYSIS (6) HLD (hyperlipidemia) Code(s): E78.5 - HYPERLIPIDEMIA, UNSPECIFIED (7) HTN (hypertension) Code(s): I10 - ESSENTIAL (PRIMARY) HYPERTENSION
--- NOTE | 2019-12-18 12:31 | DS ---
Physical Examination Vital Signs: Vital Signs Temperature 98 F 12/18/19 05:47 Pulse Rate 100 H 12/18/19 10:00 Respiratory Rate 18 12/18/19 10:00 Blood Pressure 120/60 12/18/19 10:00 O2 Sat by Pulse Oximetry (%) 100 12/18/19 10:00 Labs: CBC, BMP 12/17/19 07:35 12/17/19 07:35 Discharge Summary Problems reviewed: Yes Reason For Visit: ANEMIA, CHRONIC KIDNEY DISEASE Current Active Problems A-fib (Acute) Anemia (Acute) BPH (benign prostatic hyperplasia) (Acute) Diabetes mellitus (Acute) ESRD (end stage renal disease) on dialysis (Acute) Encounter for screening laboratory testing for COVID-19 virus (Acute) HLD (hyperlipidemia) (Acute) HTN (hypertension) (Acute) Hemodialysis status (Acute) Hx MRSA infection (Acute) Hypokalemia (Acute) Hospital Course: see progress note Condition: Fair - Instructions Referrals: Jass Iraheta MD [Primary Care Provider] - [facility] - Home Medications Comprehensive Discharge Medication List: Ambulatory Orders Acetaminophen [Tylenol] 650 mg PO QID PRN 12/15/19 Amiodarone HCl [Cordarone -] 200 mg PO DAILY 12/15/19 Linezolid [Zyvox] 600 mg PO BID 12/15/19 Magnesium Oxide [Mag-Ox -] 400 mg PO BID 12/15/19 Pantoprazole Sodium [Protonix] 40 mg PO BID 12/15/19 Tamsulosin HCl [Flomax -] 0.4 mg PO DAILY 12/15/19 Vitamin B Comp W-C [Nephro-Vee -] 1 tablet PO DAILY 12/15/19
--- NOTE | 2019-12-18 14:17 | PN ---
Progress Note, Physician History of Present Illness: Seen and examined at the bedside awake and alert offers no acute complaints making urine no sob, cp, fever, chills, abd pain, N/V/D - Current Medication List Current Medications: Active Medications Amiodarone HCl (Cordarone -) 200 mg PO DAILY [facility] Last Admin: 12/18/19 09:37 Dose: 200 mg Documented by: Linezolid (Zyvox (Restricted To Id) -) 600 mg PO BID [facility] Last Admin: 12/18/19 09:37 Dose: 600 mg Documented by: Magnesium Oxide (Mag-Ox -) 400 mg PO BID [facility] Last Admin: 12/18/19 09:37 Dose: 400 mg Documented by: Multivit/Ca Carb/B Cmplx/FA/Prenat (Nephro-Vee -) 1 tablet PO DAILY [facility] Last Admin: 12/18/19 09:37 Dose: 1 tablet Documented by: Pantoprazole Sodium (Protonix -) 40 mg PO BID [facility] Last Admin: 12/18/19 09:37 Dose: 40 mg Documented by: Tamsulosin HCl (Flomax -) 0.4 mg PO DAILY@0830 [facility] Last Admin: 12/18/19 09:37 Dose: 0.4 mg Documented by: - Objective Vital Signs: Vital Signs Temperature 98 F 12/18/19 05:47 Pulse Rate 100 H 12/18/19 10:00 Respiratory Rate 18 12/18/19 10:00 Blood Pressure 120/60 12/18/19 10:00 O2 Sat by Pulse Oximetry (%) 100 12/18/19 10:00 Constitutional: Yes: No Distress HENT: Yes: Atraumatic Neck: Yes: Supple Cardiovascular: Yes: Regular Rate and Rhythm Respiratory: Yes: Regular Gastrointestinal: Yes: Soft Edema: No Neurological: Yes: Alert Labs: CBC, BMP 12/17/19 07:35 12/17/19 07:35 INR, PTT INR 1.07 (0.83-1.09) 12/15/19 20:50 Assessment/Plan IMPRESSION ALLYSON/CKD allyson seems better anemia from blood loss while anticoagulated allyson during previous hospitalization when he had septic shock and endocarditis endocarditis/bacteremia PLAN No acute need for dialysis today plan to discontinue HD catheter if renal function remains stable over 1 week if pt remains in hospital check BMP in AM continue antibiotics as per primary team pt to follow up with Dr. Coughlin upon discharge Boogie Reed DO
[2019-12-19 07:54] LABS: HEMATOCRIT 23.8 % (35.4-49); HEMOGLOBIN 8.2 GM/dL (11.7-16.9); MCH 30.9 pg (25.7-33.7); MCHC 34.7 g/dl (32.0-35.9); MEAN CELL VOLUME 89.2 fl (80-96); MEAN PLT VOLUME 8.4 fl (7.5-11.1); PLATELET COUNT 137 K/MM3 (134-434); RBC 2.66 M/mm3 (4.00-5.60); RDW 14.3 % (11.9-15.9); WHITE BLOOD COUNT 7.3 K/mm3 (4.0-10.0)
[2019-12-19] MEDS: TAMSULOSIN HCL 0.4 MG CAP PO SCH (08:27)
[2019-12-19 08:29] LABS: ALBUMIN 2.6 g/dl (3.4-5.0); BILIRUBIN,TOTAL 0.7 mg/dL (0.2-1); BLOOD UREA NITROGEN 20.4 mg/dL (7-18); CALCIUM 8.2 mg/dL (8.5-10.1); CREATININE 1.9 mg/dL (0.55-1.3); TOT PROT 5.6 g/dl (6.4-8.2)
[2019-12-19] MEDS: LINEZOLID 600 MG TABLET (RESTRICTED TO ID) PO SCH ×2 (10:13→21:21)
[2019-12-19] MEDS: AMIODARONE HCL 200 MG TABLET PO SCH (10:13)
[2019-12-19] MEDS: MAGNESIUM OXIDE 400 MG TABLET (FP) PO SCH ×2 (10:13→21:21)
[2019-12-19] MEDS: VITAMIN B COMP W-C 1 EA TABLET (NEPHRO-VITE) PO SCH (10:14)
[2019-12-19] MEDS: PANTOPRAZOLE 40 MG TABLET PO SCH ×2 (10:14→21:21)
[2019-12-19] MEDS ORDERED: POTASSIUM CHLORIDE TABS 20 MEQ TABLET.ER (FP) PO ONE (10:45)
--- NOTE | 2019-12-19 11:19 | PN ---
Progress Note (short form) - Note Progress Note: last HD on Friday no SOB feels well Vital Signs - 24 hr 12/18/19 12/18/19 12/18/19 14:00 21:00 22:00 Temperature 98.1 F 98 F Pulse Rate 94 H 112 H Respiratory 18 18 19 Rate Blood Pressure 127/70 142/94 O2 Sat by Pulse 98 100 99 Oximetry (%) 12/19/19 12/19/19 12/19/19 02:00 06:00 08:33 Temperature 97.9 F 97.7 F 97.8 F Pulse Rate 88 97 H 109 H Respiratory 18 18 18 Rate Blood Pressure 136/82 145/84 139/92 O2 Sat by Pulse 100 100 99 Oximetry (%) Current Medications Generic Name Dose Route Start Last Admin Trade Name Freq PRN Reason Stop Dose Admin Amiodarone HCl 200 mg 12/16/19 10:00 12/19/19 10:13 Cordarone - PO 200 mg DAILY [facility] Administration Linezolid 600 mg 12/16/19 10:00 12/19/19 10:13 Zyvox (Restricted To Id) - PO 600 mg BID [facility] Administration Magnesium Oxide 400 mg 12/16/19 10:00 12/19/19 10:13 Mag-Ox - PO 400 mg BID [facility] Administration Multivit/Ca Carb/B Cmplx/FA/Prenat 1 tablet 12/16/19 10:00 12/19/19 10:14 Nephro-Vee - PO 1 tablet DAILY [facility] Administration Pantoprazole Sodium 40 mg 12/16/19 10:00 12/19/19 10:14 Protonix - PO 40 mg BID [facility] Administration Tamsulosin HCl 0.4 mg 12/16/19 08:30 12/19/19 08:27 Flomax - PO 0.4 mg DAILY@0830 [facility] Administration Laboratory Results - last 24 hr 12/15/19 12/19/19 12/19/19 23:40 07:03 07:03 WBC 7.3 RBC 2.66 L Hgb 8.2 L Hct 23.8 L MCV 89.2 MCH 30.9 MCHC 34.7 RDW 14.3 Plt Count 137 D MPV 8.4 Sodium 141 Potassium 3.0 L Chloride 103 Carbon Dioxide 30 Anion Gap 8 BUN 20.4 H Creatinine 1.9 H Est GFR (CKD-EPI)AfAm 43.14 Est GFR (CKD-EPI)NonAf 37.22 Random Glucose 93 Calcium 8.2 L Total Bilirubin 0.7 AST 19 ALT 33 Alkaline Phosphatase 79 Total Protein 5.6 L Albumin 2.6 L Blood Type A POSITIVE Antibody Screen Negative Crossmatch See Detail S1, S2 regular. Lungs clear. Abdomen soft, nontender. No edema plan Continue linezolid for MRSA endocarditis/bacteremia. s/p PRBC Dialysis as per investment officer Stool guaiac is negative Check CBC dc planning pending insurance approval decreased Hb will consult Hematology while pt is in hospital Problem List - Problems (1) A-fib Code(s): I48.91 - UNSPECIFIED ATRIAL FIBRILLATION (2) Anemia Code(s): D64.9 - ANEMIA, UNSPECIFIED (3) BPH (benign prostatic hyperplasia) Code(s): N40.0 - BENIGN PROSTATIC HYPERPLASIA WITHOUT LOWER URINRY TRACT SYMP (4) Diabetes mellitus Code(s): E11.9 - TYPE 2 DIABETES MELLITUS WITHOUT COMPLICATIONS (5) ESRD (end stage renal disease) on dialysis Code(s): N18.6 - END STAGE RENAL DISEASE; Z99.2 - DEPENDENCE ON RENAL DIALYSIS (6) HLD (hyperlipidemia) Code(s): E78.5 - HYPERLIPIDEMIA, UNSPECIFIED (7) HTN (hypertension) Code(s): I10 - ESSENTIAL (PRIMARY) HYPERTENSION
--- NOTE | 2019-12-19 20:29 | CON.HO ---
Consult Consult Specialty:: Heme Referred by:: Dr. Gonzalez Reason for Consultation:: Anemia - History of Present Illness History of Present Illness: 59M with DM, NICM (improvedEFfrom 25 to 55%) s/p single chamber AICD (05/2014), Afib on AC, DM, HTN admitted from SNF with Hgb 6.1. Quiac neg. Responded appropriately to 2 PRBC with Hgb 8.2 today. Pt had a recent prolonged admission at [facility] for MRSA bacteremia/endocarditis requiring ICD removal, still on Linezolid, Klebsiella bacteremia, ALLYSON on CKD, started on HD. While admitted, also developed melena. EGD 11/25 showed multiple duodenal ulcers thought to be possible source of bleeding; c-scope showed diverticulosis in sigmoid colon. Hematology consulted for anemia. On 11/23/19, ferritin was 828. Had been transfused. Was receiving Aranesp with HD. Pt feels well. Denies SOB, dizziness, chest pain. Denies melena/hematochezia since last hospitalization. - Past Medical History Cardio/Vascular: Yes: AFIB, HTN, Hyperlipdemia, Other (Endocarditis) Gastrointestinal: Yes: GERD Renal/: Yes: BPH, Hemodialysis Infectious Disease: Yes: MRSA - Past Surgical History Past Surgical History: Yes: AICD - Alcohol/Substance Use Hx Alcohol Use: No History of Substance Use: reports: None - Smoking History Smoking history: Never smoked - Social History ADL: Support Services History of Recent Travel: No Home Medications - Allergies Allergies/Adverse Reactions: Allergies Allergy/AdvReac Type Severity Reaction Status Date / Time piperacillin [From Zosyn] Allergy Verified 12/16/19 19:56 sulfamethoxazole Allergy Verified 12/16/19 19:56 [From Bactrim] tazobactam [From Zosyn] Allergy Verified 12/16/19 19:56 trimethoprim [From Bactrim] Allergy Verified 12/16/19 19:56 - Home Medications Home Medications: Ambulatory Orders Acetaminophen [Tylenol] 650 mg PO QID PRN 12/15/19 Amiodarone HCl [Cordarone -] 200 mg PO DAILY 12/15/19 Linezolid [Zyvox] 600 mg PO BID 12/15/19 Magnesium Oxide [Mag-Ox -] 400 mg PO BID 12/15/19 Pantoprazole Sodium [Protonix] 40 mg PO BID 12/15/19 Tamsulosin HCl [Flomax -] 0.4 mg PO DAILY 12/15/19 Vitamin B Comp W-C [Nephro-Eve -] 1 tablet PO DAILY 12/15/19 Review of Systems - Review of Systems Constitutional: reports: No Symptoms Cardiovascular: denies: Shortness of Breath Respiratory: denies: SOB, SOB on Exertion Gastrointestinal: denies: Melena, Rectal Bleeding Genitourinary: denies: Hematuria Neurological: denies: Dizziness Hematology/Lymphatic: denies: Excessive Bleeding Physical Exam Vital Signs: Vital Signs Temperature 98.0 F 12/19/19 18:00 Pulse Rate 93 H 12/19/19 18:00 Respiratory Rate 18 12/19/19 18:00 Blood Pressure 148/80 12/19/19 18:00 O2 Sat by Pulse Oximetry (%) 100 12/19/19 18:00 Constitutional: Yes: No Distress, Calm Eyes: Yes: Conjunctiva Clear Neck: No: Lymphadenopathy Respiratory: Yes: Regular Gastrointestinal: Yes: Soft. No: Distention, Tenderness Edema: LLE: 1+, RLE: 1+ Labs: CBC, BMP 12/19/19 07:03 12/19/19 07:03 Assessment/Plan 59M with DM, NICM (improvedEFfrom 25 to 55%) s/p single chamber AICD (05/2014), Afib on AC, DM, HTN, recently started on HD admitted with Hgb 6.1. Responded appropriately to 2 PRBC. Hgb 8.2 today. ? GIB Recent EGD with duodenal ulcers. Would check iron studies, b12, folate, retics, free kappa/lambda (SPEP normal in 10/2019) Has GI appt at [facility] on 01/12
[2019-12-20 09:15] LABS: HEMATOCRIT 27.1 % (35.4-49); HEMOGLOBIN 9.2 GM/dL (11.7-16.9); MCH 30.2 pg (25.7-33.7); MCHC 33.8 g/dl (32.0-35.9); MEAN CELL VOLUME 89.6 fl (80-96); MEAN PLT VOLUME 8.2 fl (7.5-11.1); PLATELET COUNT 186 K/MM3 (134-434); RBC 3.03 M/mm3 (4.00-5.60); RDW 14.4 % (11.9-15.9); WHITE BLOOD COUNT 7.2 K/mm3 (4.0-10.0)
[2019-12-20 09:35] LABS: CALCIUM 8.1 mg/dL (8.5-10.1); CREATININE 1.8 mg/dL (0.55-1.3); POTASSIUM 3.4 mmol/L (3.5-5.1)
--- NOTE | 2019-12-20 10:16 | PN ---
Progress Note (short form) - Note Progress Note: RENAL Pt is awake and alert has no complaints Last Vital Signs Temp Pulse Resp BP Pulse Ox 98.1 F 110 H 20 137/88 98 12/20/19 05:57 12/20/19 05:57 12/20/19 05:57 12/20/19 05:57 12/19/19 22:00 lungs clear cvs s1s2 rr abd soft ext no edema neuro a+ox3 CBC, BMP 12/20/19 07:50 12/20/19 08:15 Current Medications Generic Name Dose Route Start Last Admin Trade Name Radha PRN Reason Stop Dose Admin Amiodarone HCl 200 mg 12/16/19 10:00 12/19/19 10:13 Cordarone - PO 200 mg DAILY [facility] Administration Linezolid 600 mg 12/16/19 10:00 12/19/19 21:21 Zyvox (Restricted To Id) - PO 600 mg BID [facility] Administration Magnesium Oxide 400 mg 12/16/19 10:00 12/19/19 21:21 Mag-Ox - PO 400 mg BID [facility] Administration Multivit/Ca Carb/B Cmplx/FA/Prenat 1 tablet 12/16/19 10:00 12/19/19 10:14 Nephro-Vee - PO 1 tablet DAILY [facility] Administration Pantoprazole Sodium 40 mg 12/16/19 10:00 12/19/19 21:21 Protonix - PO 40 mg BID [facility] Administration Tamsulosin HCl 0.4 mg 12/16/19 08:30 12/19/19 08:27 Flomax - PO 0.4 mg DAILY@0830 [facility] Administration IMPRESSION ALLYSON/CKD allyson seems better anemia from blood loss while anticoagulated allyson during previous hospitalization when he had septic shock and endocarditis PLAN continue current management does not need hd would monitor renal function will have catheter removed in a day or 2 if not requiring HD MV
[2019-12-20] MEDS ORDERED: PT OWN MED DRAWER 7, Y5N ONE (10:46)
[2019-12-20] MEDS: LINEZOLID 600 MG TABLET (RESTRICTED TO ID) PO SCH ×2 (10:51→22:25)
[2019-12-20] MEDS: VITAMIN B COMP W-C 1 EA TABLET (NEPHRO-VITE) PO SCH (10:51)
[2019-12-20] MEDS: AMIODARONE HCL 200 MG TABLET PO SCH (10:51)
[2019-12-20] MEDS: MAGNESIUM OXIDE 400 MG TABLET (FP) PO SCH ×2 (10:51→22:25)
[2019-12-20] MEDS: TAMSULOSIN HCL 0.4 MG CAP PO SCH (10:51)
[2019-12-20] MEDS: PANTOPRAZOLE 40 MG TABLET PO SCH ×2 (10:51→22:25)
--- NOTE | 2019-12-20 13:16 | PN ---
Progress Note (short form) - Note Progress Note: last HD on Friday no SOB feels well Vital Signs - 24 hr 12/19/19 12/19/19 12/19/19 18:00 21:00 22:00 Temperature 98.0 F 97.9 F Pulse Rate 93 H 114 H Respiratory 18 20 20 Rate Blood Pressure 148/80 125/78 O2 Sat by Pulse 100 98 98 Oximetry (%) 12/20/19 12/20/19 05:57 10:00 Temperature 98.1 F 98.2 F Pulse Rate 110 H 127 H Respiratory 20 20 Rate Blood Pressure 137/88 120/82 O2 Sat by Pulse 98 Oximetry (%) Current Medications Generic Name Dose Route Start Last Admin Trade Name Freq PRN Reason Stop Dose Admin Amiodarone HCl 200 mg 12/16/19 10:00 12/20/19 10:51 Cordarone - PO 200 mg DAILY CEDRIC Administration Linezolid 600 mg 12/16/19 10:00 12/20/19 10:51 Zyvox (Restricted To Id) - PO 600 mg BID CEDRIC Administration Magnesium Oxide 400 mg 12/16/19 10:00 12/20/19 10:51 Mag-Ox - PO 400 mg BID CEDRIC Administration Multivit/Ca Carb/B Cmplx/FA/Prenat 1 tablet 12/16/19 10:00 12/20/19 10:51 Nephro-Vee - PO 1 tablet DAILY CEDRIC Administration Pantoprazole Sodium 40 mg 12/16/19 10:00 12/20/19 10:51 Protonix - PO 40 mg BID CEDRIC Administration Tamsulosin HCl 0.4 mg 12/16/19 08:30 12/20/19 10:51 Flomax - PO 0.4 mg DAILY@0830 CEDRIC Administration Laboratory Results - last 24 hr 12/15/19 12/20/19 12/20/19 23:40 06:00 07:50 WBC 7.2 RBC 3.03 L Hgb 9.2 L Hct 27.1 L MCV 89.6 MCH 30.2 MCHC 33.8 RDW 14.4 Plt Count 186 D MPV 8.2 Retic Count Sodium Potassium Chloride Carbon Dioxide Anion Gap BUN Creatinine Est GFR (CKD-EPI)AfAm Est GFR (CKD-EPI)NonAf Random Glucose Calcium Iron 34 L TIBC 195 L Iron Saturation 17 L Unsaturated IBC 161 L Ferritin 720.1 H Vitamin B12 451 Serum Folate Blood Type A POSITIVE Antibody Screen Negative Crossmatch See Detail 12/20/19 12/20/19 07:50 08:15 WBC RBC Hgb Hct MCV MCH MCHC RDW Plt Count MPV Retic Count 1.18 Sodium 143 Potassium 3.4 L Chloride 104 Carbon Dioxide 33 H Anion Gap 6 L BUN 20.0 H Creatinine 1.8 H Est GFR (CKD-EPI)AfAm 46.05 Est GFR (CKD-EPI)NonAf 39.74 Random Glucose 81 Calcium 8.1 L Iron TIBC Iron Saturation Unsaturated IBC Ferritin Vitamin B12 Serum Folate 13 Blood Type Antibody Screen Crossmatch S1, S2 regular. Lungs clear. Abdomen soft, nontender. No edema plan Continue linezolid for MRSA endocarditis/bacteremia. s/p PRBC Dialysis as per registered private duty nurse Stool guaiac is negative Check CBC dc planning pending insurance approval Hematology eval appreciated replace potassium Renal input noted about removing his Permacath soon Problem List - Problems (1) A-fib Code(s): I48.91 - UNSPECIFIED ATRIAL FIBRILLATION (2) Anemia Code(s): D64.9 - ANEMIA, UNSPECIFIED (3) BPH (benign prostatic hyperplasia) Code(s): N40.0 - BENIGN PROSTATIC HYPERPLASIA WITHOUT LOWER URINRY TRACT SYMP (4) Diabetes mellitus Code(s): E11.9 - TYPE 2 DIABETES MELLITUS WITHOUT COMPLICATIONS (5) ESRD (end stage renal disease) on dialysis Code(s): N18.6 - END STAGE RENAL DISEASE; Z99.2 - DEPENDENCE ON RENAL DIALYSIS (6) HLD (hyperlipidemia) Code(s): E78.5 - HYPERLIPIDEMIA, UNSPECIFIED (7) HTN (hypertension) Code(s): I10 - ESSENTIAL (PRIMARY) HYPERTENSION
[2019-12-20] MEDS ORDERED: POTASSIUM CHLORIDE TABS 20 MEQ TABLET.ER (FP) PO ONE (13:30)
[2019-12-21 06:42] VITALS: TEMP 97.7
[2019-12-21 08:14] LABS: HEMATOCRIT 24.7 % (35.4-49); HEMOGLOBIN 8.4 GM/dL (11.7-16.9); MCH 30.8 pg (25.7-33.7); MCHC 34.1 g/dl (32.0-35.9); MEAN CELL VOLUME 90.4 fl (80-96); MEAN PLT VOLUME 8.2 fl (7.5-11.1); PLATELET COUNT 178 K/MM3 (134-434); RBC 2.74 M/mm3 (4.00-5.60); RDW 14.1 % (11.9-15.9); WHITE BLOOD COUNT 7.2 K/mm3 (4.0-10.0)
[2019-12-21 08:45] LABS: BLOOD UREA NITROGEN 19.1 mg/dL (7-18); CREATININE 1.5 mg/dL (0.55-1.3); POTASSIUM 3.3 mmol/L (3.5-5.1)
[2019-12-21] MEDS: PANTOPRAZOLE 40 MG TABLET PO SCH (09:23)
[2019-12-21] MEDS: TAMSULOSIN HCL 0.4 MG CAP PO SCH (09:23)
[2019-12-21] MEDS: AMIODARONE HCL 200 MG TABLET PO SCH ×2 (09:23→09:39)
[2019-12-21] MEDS: MAGNESIUM OXIDE 400 MG TABLET (FP) PO SCH (09:23)
[2019-12-21] MEDS: VITAMIN B COMP W-C 1 EA TABLET (NEPHRO-VITE) PO SCH (09:24)
[2019-12-21] MEDS: LINEZOLID 600 MG TABLET (RESTRICTED TO ID) PO SCH (09:24)
[2019-12-21 11:13] VITALS: BP 158/100; PULSE 124
--- NOTE | 2019-12-21 11:18 | PN ---
Progress Note (short form) - Note Progress Note: last HD on Friday no SOB feels well Vital Signs - 24 hr 12/20/19 12/20/19 12/20/19 14:00 18:00 21:00 Temperature 98.2 F 98.0 F Pulse Rate 107 H 102 H Respiratory 20 20 20 Rate Blood Pressure 114/69 129/78 O2 Sat by Pulse 98 98 100 Oximetry (%) 12/20/19 12/21/19 12/21/19 21:28 02:00 06:00 Temperature 98.1 F 97.5 F L 97.7 F Pulse Rate 105 H 102 H 109 H Respiratory 20 20 20 Rate Blood Pressure 134/92 137/65 107/69 O2 Sat by Pulse 100 100 100 Oximetry (%) 12/21/19 12/21/19 12/21/19 09:00 09:35 11:10 Temperature Pulse Rate 112 H 124 H Respiratory 18 18 Rate Blood Pressure 111/84 158/100 O2 Sat by Pulse 99 99 Oximetry (%) Laboratory Results - last 24 hr 12/21/19 12/21/19 06:55 06:55 WBC 7.2 RBC 2.74 L Hgb 8.4 L Hct 24.7 L MCV 90.4 MCH 30.8 MCHC 34.1 RDW 14.1 Plt Count 178 MPV 8.2 Sodium 142 Potassium 3.3 L Chloride 104 Carbon Dioxide 29 Anion Gap 9 BUN 19.1 H Creatinine 1.5 H Est GFR (CKD-EPI)AfAm 57.41 Est GFR (CKD-EPI)NonAf 49.53 Random Glucose 85 Calcium 8.0 L S1, S2 regular. Lungs clear. Abdomen soft, nontender. No edema plan Continue linezolid for MRSA endocarditis/bacteremia. s/p PRBC Dialysis as per septic tank installer Stool guaiac is negative Check CBC dc planning today Hematology eval appreciated replace potassium Renal input noted about removing his Permacath soon Problem List - Problems (1) A-fib Code(s): I48.91 - UNSPECIFIED ATRIAL FIBRILLATION (2) Anemia Code(s): D64.9 - ANEMIA, UNSPECIFIED (3) BPH (benign prostatic hyperplasia) Code(s): N40.0 - BENIGN PROSTATIC HYPERPLASIA WITHOUT LOWER URINRY TRACT SYMP (4) Diabetes mellitus Code(s): E11.9 - TYPE 2 DIABETES MELLITUS WITHOUT COMPLICATIONS (5) ESRD (end stage renal disease) on dialysis Code(s): N18.6 - END STAGE RENAL DISEASE; Z99.2 - DEPENDENCE ON RENAL DIALYSIS (6) HLD (hyperlipidemia) Code(s): E78.5 - HYPERLIPIDEMIA, UNSPECIFIED (7) HTN (hypertension) Code(s): I10 - ESSENTIAL (PRIMARY) HYPERTENSION
[2019-12-21 18:08] LABS: HEP B CORE AB, TOT Negative (Negative)
== END 2019-12-21 12:08 | DRG 663 ==
LOC: JER 20:19 → JERBED 22:13 → J5S 12-16 10:40
PROVIDERS: ADMIT Hospitalist; ATTEND Internal Medicine
PROC: 30233N1 Transfusion of Nonautologous Red Blood Cells into Peripheral Vein, Percutaneous Approach (ICD-10-PCS; principal; 2019-12-15)
DX: D64.9 Anemia, unspecified (principal); N17.9 Acute kidney failure, unspecified; I48.91 Unspecified atrial fibrillation; E11.22 Type 2 diabetes mellitus with diabetic chronic kidney disease; I12.0 Hypertensive chronic kidney disease with stage 5 chronic kidney disease or end stage renal disease; N18.6 End stage renal disease; I42.8 Other cardiomyopathies; K21.9 Gastro-esophageal reflux disease without esophagitis; N40.0 Benign prostatic hyperplasia without lower urinary tract symptoms; E78.5 Hyperlipidemia, unspecified; E66.9 Obesity, unspecified; Z99.2 Dependence on renal dialysis; E87.6 Hypokalemia; Z79.01 Long term (current) use of anticoagulants; Z95.810 Presence of automatic (implantable) cardiac defibrillator; Z68.34 Body mass index [BMI] 34.0-34.9, adult
CPT/HCPCS: 36415; 36430; 36511; 71045-TC-FY; 80048; 80053; 81003; 82272; 82607; 82728; 82746; 83540; 83550; 83883; 84484; 85025; 85027; 85045; 85610; 85730; 86704; 86706; 86707; 86708; 86709; 86850; 86900; 86901; 86922; 87340; 87522; 93005; 93010; 97116-GP; 97162-GP; 99285-25; P9038; P9058; U0003

== ENCOUNTER 2019-12-27 15:54 | Observation (INO) | payer OTHER ==
[2019-12-27 16:02] VITALS: BMI 33.5
--- NOTE | 2019-12-27 16:04 | PDOC ---
History of Present Illness - General Chief Complaint: Irregular Heart Beat Stated Complaint: Irregular Heart Beat Time Seen by Provider: 12/27/19 16:03 - History of Present Illness Initial Comments: 12/27/19 17:06 59 M with HTN, DM , Nonischemic cardiomyopathy (ICD replacement on 2014, EF 25-->50%), bacteremia s/p ICD removal (2 weeks ago), Filiberto ( on Metoprolol 100), presented to the ED for rapid heart rate. He went to his hotel superintendent Kobi Paige this morning, and got sent here for tachycardic. Patient has no associated symp toms: syncope, chest pain, nausea, vomiting, diaphoresis, headache, numbness. Allergy: peperacillin, sulfamethoxazole, tazaobactam, trimethorprim. PMHX: as in HPI Meds: Tob: denies Etoh: denies Rec drugs: denies PCP: Jass Iraheta Break Up Worker: Kobi Paige. ROS GENERAL/CONSTITUTIONAL: No fever or chills. No weakness. HEAD, EYES, EARS, NOSE AND THROAT: No change in vision. No ear pain or dis charge. No sore throat. CARDIOVASCULAR: No chest pain or shortness of breath RESPIRATORY: No cough, wheezing, or hemoptysis. GASTROINTESTINAL: No nausea, vomiting, diarrhea or constipation. GENITOURINARY: No dysuria, frequency, or change in urination. MUSCULOSKELETAL: No joint or muscle swelling or pain. No neck or back pain. SKIN: No rash NEUROLOGIC: No headache, vertigo, loss of consciousness, or change in strength/sensation. ENDOCRINE: No increased thirst. No abnormal weight change HEMATOLOGIC/LYMPHATIC: + anemia, easy bleeding, or history of blood clots. ALLERGIC/IMMUNOLOGIC: No hives or skin allergy. PE tachycardic. Appeared comfortably laying on bed. flat effect. GENERAL: Awake, alert, and fully oriented, in no acute distress HEAD: No signs of trauma, normocephalic, atraumatic EYES: PERRLA, EOMI, sclera anicteric, conjunctiva clear ENT: Auricles normal inspection, hearing grossly normal, nares patent, oropharynx clear without exudates. Moist mucosa NECK: Normal ROM, supple, no lymphadenopathy, JVD, or masses LUNGS: No distress, speaks full sentences, clear to auscultation bilaterally HEART: IrRegular rate and rhythm, normal S1 and S2, peripheral pulses normal and equal bilaterally. ABDOMEN: Soft, nontender, normoactive bowel sounds. No guarding, no rebound. No masses EXTREMITIES : Normal inspection, Normal range of motion, 1+pitting edema bilat . No clubbing or cyanosis. NEUROLOGICAL: Cranial nerves II through XII grossly intact. Normal speech, normal gait, no focal sensorimotor deficits SKIN: Warm, Dry, normal turgor, no rashes or lesions noted. +Jaundice 12/27/19 17:51 Past History - Medical History Allergies/Adverse Reactions: Allergies Allergy/AdvReac Type Severity Reaction Status Date / Time piperacillin [From Zosyn] Allergy Verified 12/16/19 19:56 sulfamethoxazole Allergy Verified 12/16/19 19:56 [From Bactrim] tazobactam [From Zosyn] Allergy Verified 12/16/19 19:56 trimethoprim [From Bactrim] Allergy Verified 12/16/19 19:56 Home Medications: Ambulatory Orders Acetaminophen [Tylenol] 650 mg PO QID PRN 12/15/19 Amiodarone HCl [Cordarone -] 200 mg PO DAILY 12/15/19 Linezolid [Zyvox] 600 mg PO BID 12/15/19 Magnesium Oxide [Mag-Ox -] 400 mg PO BID 12/15/19 Pantoprazole Sodium [Protonix] 40 mg PO BID 12/15/19 Tamsulosin HCl [Flomax -] 0.4 mg PO DAILY 12/15/19 Vitamin B Comp W-C [Nephro-Vee -] 1 tablet PO DAILY 12/15/19 Diabetes: Yes - Psycho-Social/Smoking History Smoking History: Never smoked - Substance Abuse Hx (Audit-C & DAST Scrn) How often the patient has a drink containing alcohol: Never Score: In Men: 4 or > Positive; In Women: 3 or > Positive: 0 Screen Result (Pos requires Nsg. Audit-10AR): Negative In the last yr the pt used illegal drug/Rx for NonMed reason: No Score: Yes response is considered Positive: 0 Screen Result (Positive result requires Nsg. DAST-10): Negative *Physical Exam - Vital Signs Last Vital Signs Temp Pulse Resp BP Pulse Ox 98.2 F 135 H 20 120/80 100 12/27/19 15:59 12/27/19 15:59 12/27/19 15:59 12/27/19 15:59 12/27/19 15:59 ED Treatment Course - LABORATORY CBC & Chemistry Diagram: 12/27/19 16:57 12/27/19 16:57 Medical Decision Making - Medical Decision Making Attempted to do IV lines, obtained blood, but will try to put in a line again. Patient is stable and asymptomatic, will load with Metoprolol PO 50mg. 12/27/19 17:52 Got an IV line on his right arm, gave cardizem 10mg per Dr. Paige q4 PRN Will control his rate, get it under 110. 12/27/19 19:[address] Paige. He wanted him to be admit for obersevation to sort out his rate sontrol meds. Patient has been hemodynamically stable, his heart rate ranges from 80-100 with 10mg diltizem IV, and 50mg metoprolol. mbmd sent, and decision to admit is in. 12/28/19 00:06 Called the [facility] to let them know he is admitted and safe. Discharge - Discharge Information Problems reviewed: Yes Clinical Impression/Diagnosis: A-fib Condition: Good - Admission Yes - Follow up/Referral - Patient Discharge Instructions - Post Discharge Activity
[2019-12-27] MEDS ORDERED: METOPROLOL TARTRATE 50 MG TABLET (FP) PO ONE (17:03)
[2019-12-27] MEDS ORDERED: dilTIAZem HCL 50 MG/10 ML - 10 ML VIAL IVPUSH PRN (17:06)
[2019-12-27 17:20] LABS: BASO % 0.3 % (0-2.0); EOS % 0.4 % (0-4.5); HEMATOCRIT 24.6 % (35.4-49); HEMOGLOBIN 8.3 GM/dL (11.7-16.9); LYMPH % 12.4 % (8-40); MCH 30.9 pg (25.7-33.7); MCHC 33.5 g/dl (32.0-35.9); MEAN CELL VOLUME 92.4 fl (80-96); MEAN PLT VOLUME 8.9 fl (7.5-11.1); MONO % 4.5 % (3.8-10.2); NEUT % 82.4 % (42.8-82.8); PLATELET COUNT 79 K/MM3 (134-434); RBC 2.67 M/mm3 (4.00-5.60); RDW 15.1 % (11.9-15.9); WHITE BLOOD COUNT 8.6 K/mm3 (4.0-10.0)
[2019-12-27 17:29] LABS: INR 1.02 (0.83-1.09)
[2019-12-27 17:50] LABS: ALK PHOS 88 U/L (45-117); ANION GAP 13 MMOL/L (8-16); BILIRUBIN,TOTAL 0.7 mg/dL (0.2-1); BLOOD UREA NITROGEN 34.9 mg/dL (7-18); CALCIUM 8.5 mg/dL (8.5-10.1); CHLORIDE 97 mmol/L (98-107); CO2 27 mmol/L (21-32); CREATININE 1.4 mg/dL (0.55-1.3); GLUCOSE,RANDOM 105 mg/dL (74-106); POTASSIUM 3.5 mmol/L (3.5-5.1); SGOT/AST 26 U/L (15-37); SGPT/ALT 36 U/L (13-61); SODIUM 138 mmol/L (136-145); TOT PROT 6.1 g/dl (6.4-8.2)
--- NOTE | 2019-12-27 17:50 | PDOC ---
Documentation entered by Daija Mcclure SCRIBE, acting as scribe for Trish Rachel MD. Trish Rachel MD: This documentation has been prepared by the Ren alves Brenda, SCRIBE, under my direction and personally reviewed by me in its entirety. I confirm that the documentation accurately reflects all work, treatment, procedures, and medical decision making performed by me. 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 for rate control of his chronic atrial fibrillation pt usually takes metoprolol,cardizem,digoxin in the past for rate control - Physicial Exam PE: 12/27/19 17:47 tall 59 yo male p/w rapid afib head ncat neck supple lungs no wheezing cvs tachycardia,irreg ,irreg rhythm skin warm and dry abdomen no rebound extremities no erythema neuro axox3 - Medical Decision Making 12/27/19 17:49 Dr Paige recommended diltiazem IVP and OBS telemetry admission 12/27/19 19:45 12/27/19 19:45 first troponin is negative cr=1.4 Discharge - Discharge Information Problems reviewed: Yes Clinical Impression/Diagnosis: A-fib Condition: Good - Follow up/Referral - Patient Discharge Instructions - Post Discharge Activity
[2019-12-27 17:58] LABS: ACTIVATED PTT 16.6 SECONDS (25.2-36.5)
[2019-12-27] MEDS ORDERED: dilTIAZem HCL 125 MG/25 ML - 25 ML VIAL ONE (20:17)
--- OUTSIDE RECORDS SUMMARY | 2019-12-27 20:36 | XMS ---
:1960 Author Organization [facility] Care Team Providers Name Role Phone Alistair Desouza MD Unavailable Unavailable [facility]available [email or web address] Unavailable [email or web address] Unavailable [email or web address] Unavailable [email or web address]available [email or web address] Unavailable [email or web address] Unavailable [email or web address] MD Yuri Unavailable Unavailable BRADEN Smith Unavailable Unavailable MD Denys Unavailable Unavailable MD Estevan Unavailable Unavailable MD Trinidad Unavailable Unavailable Ana Ndiaye MD Unavailable Unavailable Re-disclosure Warning The records that you are about to access may contain information from federally- assisted alcohol or drug abuse programs. If such information is present, then the following federally mandated warning applies: This information has been disclosed to you from records protected by federal confidentiality rules (42 CFR part 2). The federal rules prohibit you from making any further disclosure of this information unless further disclosure is expressly permitted by the written consent of the person to whom it pertains or as otherwise permitted by 42 CFR part 2. A general authorization for the release of medical or other information is NOT sufficient for this purpose. The Federal rules restrict any use of the information to criminally investigate or prosecute any alcohol or drug abuse patient.The records that you are about to access may contain highly sensitive health information, the redisclosure of which is protected by Article 27-F of the [place] State Public Health law. If you continue you may haveaccess to information: Regarding HIV / AIDS; Provided by facilities licensed or operated by the [facility] Office of Mental Health; or Provided by the [facility] Office for People With Developmental Disabilities. If such information is present, then the following [facility] mandated warning applies: This information has been disclosed to you from confidential records which are protected by state law. State law prohibits you from making any further disclosure of this information without the specific written consent of the person to whom it pertains, or as otherwise permitted by law. Any unauthorized further disclosure in violation of state law may result in a fine or prison sentence or both. A general authorization for the release of medical or other information is NOT sufficient authorization for further disclosure. Advance Directives Directive Description [facility] Director Status Observation Data Description Source(s ) Intubation [facility] Intubation [facility] E Extended ([facility]) Resuscitation [facility] Resuscitation [facility] Extended ([facility]) Intubation [facility] Intubation [facility] E Extended ([facility]) Resuscitation [facility] Resuscitation SI [facility] Extended ([facility]) Advance No completed [facility] Advance No completed [facility] Allergies and Adverse Reactions Type Description Substance Reaction Status Data Source(s) Miscellaneous Tazobactam Tazobactam [facility] allergy ([facility]) Drug allergy Zosyn in dextrose Zosyn in dextrose [facility] (iso-osm) (iso-osm) ([facility]) Drug allergy trimethoprim trimethoprim [facility] E ([facility]) Drug allergy sulfamethoxazole sulfamethoxazole [facility] (bulk) (bulk) ([facility]) Drug allergy piperacillin-tazobac piperacillin-tazobac [facility] vidal vidal ([facility]) Drug allergy Bactrim Bactrim [facility] ([facility]) Drug allergy No Known Allergies No Known Allergies none [facility] Encounters Encounter Providers Location Date Indications Data Source(s ) Inpatient Attender: [address] [place] [address] 12/21/2019 SIGMACARE Jass Iraheta 11:45:00 AM ([facility] EDT [facility]) Patient admitted. Inpatient Attender: Jass [address] [place] [address] 12/02/2019 05:30:00 SIG[facility]ARE ([facility] PM EDT - 12/15/2019 Exten ded Care 07:23:00 PM EDT Center) Patient discharged. Inpatient Attender: Blanca Ndiaye 10/30/2019 SEPSIS RAP ID Vaughn Gold MDAttender: Suzie 03:22:00 PM EDT - [facility] MDAttender: Carrington 11/10/2019 Denys MDAttender: Jake 06:00:00 AM EDT [place] MDAttender: Lenore Zelayadmitter: Fely Abdi MDConsultant: Alistair Desouza MDConsultant: Carrington Mcfarlane MD SEPSIS RAPID AFIB Patient discharged. Functional Status Medications Medication Brand Start Product Dose Route [facility] Indications Reaction Description Data Name Date Form Instructions Instructions Source(s) miconazole Micona complet miconaz ole [facility] nitrate 2 % zole 2019 ed nitrate 2 % ( [facility] topical Nitrat 05:26: topical Exten ded cream e 20 06 AM cream Care MG/ML EDT Center) Topica l Cream miconazole Micona miconaz ole [facility] nitrate 2 % zole 2020 ed nitrate 2 % ( [facility] topical Nitrat 05:26: topical Exten ded cream e 20 05 AM cream Care MG/ML EDT Center) Topica l Cream magnesium Magnes magnesiu m [facility] oxide 400 ium 2019 ed oxide 400 mg (R egency mg (241.3 Oxide 05:26: (241.3 mg Ex tended mg 400 MG 04 AM magnesium) Care magnesium) Oral EDT tablet Center) tablet Tablet pantoprazol pantop pantop razole [facility] e 40 mg razole 2019 ed 40 mg ([facility] tablet,sherlyn 40 MG 05:26: tablet,del ay Extended yed release Delaye 04 AM ed release Care d EDT Center) Releas e Oral Tablet miconazole Micona miconaz ole [facility] nitrate 2 % zole 2020 ed nitrate 2 % ( [facility] topical Nitrat 05:26: topical Exten ded cream e 20 04 AM cream Care MG/ML EDT Center) Topica l Cream tamsulosin Tamsul tamsulo sin [facility] 0.4 mg osin 2020 ed 0.4 mg ([facility] capsule hydroc 05:26: capsule Exten ded hlorid 04 AM Care e 0.4 EDT Center) MG Oral Capsul e Nephro-Vee [id number] Nephro -Vee SIGMACARE (b [id number] 2019 ed 0.8 mg ([facility] complex-vit 05:26: tablet Exte nded islas 03 AM Care c-folic EDT Center) acid) 0.8 mg tablet amiodarone Amioda amiodar one [facility] 200 mg usman 2020 ed 200 mg ([facility] tablet hydroc 05:26: tablet Extende d hlorid 03 AM Care e 200 EDT Center) MG Oral Tablet acetaminoph Acetam acetam inophe [facility] en 325 mg inophe 2019 ed n 325 mg (Reg ency tablet n 325 05:26: tablet Extended MG 02 AM Care Oral EDT Center) Tablet Tubersol Purifi 12/01/ complet Tubersol 5 [facility] (tuberculin ed 2019 ed tub. ([facility] ppd) 5 tub. Protei 11:21: unit/0.1 mL Extended unit/0.1 mL n 24 AM intradermal Care intradermal Deriva EDT injection C enter) injection tive solution solution of Tuberc ulin 50 UNT/ML Inject able Soluti on [Tuber herrera] miconazole Micona miconaz ole [facility] nitrate 2 % zole 2019 ed nitrate 2 % ( [facility] topical Nitrat 10:59: topical Exten ded cream e 20 50 AM cream Care MG/ML EDT Center) Topica l Cream ciprofloxac Ciprof 12/01/ complet ciprof loxaci [facility] in 250 mg loxaci 2019 ed n 250 mg (Reg ency tablet n 250 10:02: tablet Extended MG 47 AM Care Oral EDT Center) Tablet pantoprazol pantop complet pantop razole [facility] e 40 mg razole 2020 ed 40 mg ([facility] tablet,sherlyn 40 MG 09:59: tablet,del ay Extended yed release Delaye 59 AM ed release Care d EDT Center) Releas e Oral Tablet miconazole Micona complet miconaz ole [facility] nitrate 2 % zole 2019 ed nitrate 2 % ( [facility] topical Nitrat 09:59: topical Exten ded cream e 20 59 AM cream Care MG/ML EDT Center) Topica l Cream tamsulosin Tamsul 12/01/ complet tamsulo sin [facility] 0.4 mg osin 2020 ed 0.4 mg ([facility] capsule hydroc 09:59: capsule Exten ded hlorid 59 AM Care e 0.4 EDT Center) MG Oral Capsul e Nephro-Vee [id number] 12/01/ complet Nephro -Vee SIGMACARE (b [id number] 2019 ed 0.8 mg ([facility] complex-vit 09:55: tablet Exte nded islas 37 AM Care c-folic EDT Center) acid) 0.8 mg tablet magnesium Magnes 12/01/ complet magnesiu m [facility] oxide 400 ium 2019 ed oxide 400 mg (R egency mg (241.3 Oxide 09:55: (241.3 mg Ex tended mg 400 MG 37 AM magnesium) Care magnesium) Oral EDT tablet Center) tablet Tablet linezolid linezo 12/01/ complet linezoli d [facility] 600 mg lid 2020 ed 600 mg ([facility] tablet 600 MG 09:55: tablet Extende d Oral 37 AM Care Tablet EDT Center) [Zyvox ] amiodarone Amioda 12/01/ complet amiodar one [facility] 200 mg usman 2019 ed 200 mg ([facility] tablet hydroc 09:55: tablet Extende d hlorid 36 AM Care e 200 EDT Center) MG Oral Tablet acetaminoph Acetam acetam inophe [facility] en 325 mg inophe 2019 ed n 325 mg (Reg ency tablet n 325 09:12: tablet Extended MG 31 AM Care Oral EDT Center) Tablet atorvastati Atorva 11/09/ TABLET 40 mg ORAL active White n 40 MG statin 2020 [place] Oral Tablet Calciu 05:33: Hosp ital [Lipitor] m 00 AM Atorvastati EDT n Calcium sennosides, Sennos 11/09/ TABLET 2 ORAL active [facility] HOME 8.6 MG ides 2019 {Caps [place] Oral Tablet 05:33: ule} Hospit al Sennosides 00 AM EDT Digoxin Digoxi 11/09/ TABLET 0.125 ORAL active Whi te 0.125 MG n 2020 mg [place] Oral Tablet 05:33: Hospit al 00 AM EDT 24 HR Diltia 11/09/ CONTROLL 300 ORAL active Whit e Diltiazem zem 2019 ED mg [place] Hydrochlori Hcl 05:33: RELEASE Hos pital de 300 MG 00 AM CAPSULE Extended EDT Release Oral Capsule [Cardizem] Diltiazem Hcl Docusate Docusa 11/09/ CAPSULE 100 ORAL active Wh ite Sodium 100 te 2020 mg [place] MG Oral Sodium 05:33: Hospital Capsule 00 AM [DOK] EDT Metoprolol Metopr 11/09/ TABLET 100 ORAL active W ant Tartrate 50 olol 2020 mg [place] MG Oral Tartra 05:33: Hospital Tablet te 00 AM [Lopressor] EDT Sulfamethox Trimet 12/03/ TABLET 1 ORAL complet White azole 800 hoprim 2016 {Caps ed [place] MG / /Sulfa 06:52: ule} Hospital Trimethopri methox 00 PM m 160 MG azole EDT Oral Tablet Trimethopri m/Sulfameth oxazole Lisinopril Lisino 12/03/ TABLET 10 mg ORAL complet White 10 MG Oral pril 2015 ed [place] Tablet 06:47: Hospital 00 PM EDT Metoprolol Metopr 12/03/ TABLET 150 ORAL complet White Tartrate 50 olol 2016 mg ed [place] MG Oral Tartra 06:47: Hospital Tablet te 00 PM EDT Furosemide Furose 06/10/ TABLET 40 mg ORAL complet White 40 MG Oral mide 2014 ed [place] Tablet 05:11: Hospital 00 PM EST Lisinopril Lisino 06/10/ TABLET 5 mg ORAL complet White 5 MG Oral pril 2014 ed [place] Tablet 05:11: Hospital 00 PM EST atorvastati Atorva 06/10/ TABLET 40 mg ORAL complet White n 40 MG statin 2014 ed [place] Oral Tablet Calciu 05:11: Hosp ital [Lipitor] m 00 PM Atorvastati EST n Calcium Metoprolol Metopr 06/10/ TABLET 100 ORAL complet White Tartrate 50 olol 2015 mg ed [place] MG Oral Tartra 05:11: Hospital Tablet te 00 PM EST Potassium 06/10/ CONTROLL 20 ORAL complet W ant Chloride 2015 ED meq ed [place] 05:11: RELEASE Hospital 00 PM TABLET EST rivaroxaban Rivaro 06/10/ TABLET 20 mg ORAL complet White 20 MG Oral xaban 2014 ed [place] Tablet 05:11: Hospital [Xarelto] 00 PM Rivaroxaban EST Digoxin 06/10/ TABLET 0.25 ORAL complet White 2015 mg ed [place] 05:11: Hospital 00 PM EST Furosemide Furose 07/13/ TABLET 40 mg ORAL complet White 20 MG Oral mide 2013 ed [place] Tablet 04:10: Hospital 00 PM EDT Pravastatin Pravas 07/13/ TABLET 20 mg ORAL complet White Sodium 20 tatin 2013 ed [place] MG Oral Sodium 04:10: Hospital Tablet 00 PM EDT Lisinopril Lisino 07/12/ TABLET 10 mg ORAL complet White 10 MG Oral pril 2013 ed [place] Tablet 09:55: Hospital 00 AM EDT Digoxin Digoxi 06/17/ TABLET 0.125 ORAL complet Wh ite 0.125 MG n 2013 mg ed [place] Oral Tablet 01:03: Hospit al [Lanoxin] 00 PM EST Warfarin Warfar 06/17/ TABLET 7.5 ORAL complet Wh ite Sodium 7.5 in 2013 mg ed [place] MG Oral Sodium 01:03: Hospital Tablet 00 PM [Coumadin] EST Lisinopril Lisino 03/29/ TABLET 10 mg ORAL complet White 10 MG Oral pril 2012 ed [place] Tablet 09:09: Hospital 00 PM EST Metoprolol 02/04/ TABLET 100 ORAL complet Wh ite Tartrate 2013 mg ed [place] 10:51: Hospital 00 AM EDT Furosemide Furose 02/04/ TABLET 20 mg ORAL complet White 20 MG Oral mide 2012 ed [place] Tablet 10:50: Hospital 00 AM EDT Warfarin Warfar 02/04/ TABLET 7.5 ORAL complet Wh ite Sodium 7.5 in 2013 mg ed [place] MG Oral Sodium 10:50: Hospital Tablet 00 AM [Coumadin] EDT Lisinopril Lisino 02/04/ TABLET 5 mg ORAL complet White 5 MG Oral pril 2012 ed [place] Tablet 10:50: Hospital 00 AM EDT Digoxin Digoxi 02/04/ TABLET 0.125 ORAL complet Wh ite 0.125 MG n 2013 mg ed [place] Oral Tablet 10:50: Hospit al [Lanoxin] 00 AM EDT Furosemide 01/13/ TABLET 20 mg ORAL complet W ant 2012 ed [place] 10:53: Hospital 00 AM EDT Atorvastati 01/13/ TABLET 10 mg ORAL complet White n Calcium 2012 ed [place] 09:15: Hospital 00 AM EDT Warfarin 01/13/ TABLET 7.5 ORAL complet Whit e Sodium 2012 mg ed [place] 09:15: Hospital 00 AM EDT Lisinopril 01/13/ TABLET 5 mg ORAL complet Wh ite 2013 ed [place] 09:15: Hospital 00 AM EDT Metoprolol 10// TABLET 100 ORAL complet Wh ite Tartrate 2013 mg ed [place] 09:15: Hospital 00 AM EDT Digoxin 10/ TABLET 0.125 ORAL complet Whit e 2013 mg ed [place] 09:15: Hospital 00 AM EDT rivaroxaban Rivaro 20 mg ORAL complet Wh ite Rivaroxaban xaban ed [place] [facility] rivaroxaban [place] TABLET 20 ORAL complet W ant 20 MG Oral xaban {Caps ed [place] Tablet ule} Hospital [Xarelto] Rivaroxaban Lisinopril Lisino TABLET 20 mg ORAL complet W ant 20 MG Oral pril ed [place] Tablet Hospital Metoprolol Metopr TABLET 100 ORAL complet Wh ite Tartrate 50 olol mg ed [place] MG Oral Tartra Hospital Tablet te Digoxin Digoxi TABLET 125 ORAL active White 0.125 MG n ug [place] Oral Tablet Hospital Spironolact Spiron TABLET 25 complet W ant one 50 MG olacto ed [place] Oral Tablet ne Hospital Metformin Metfor 500 ORAL complet White hydrochlori min mg ed [place] de 500 MG Hcl Hospital Oral Tablet [Glucophage ] Metformin Hcl 24 HR Metopr TABLET 200 ORAL complet White metoprolol olol 24 HR mg ed [place] succinate Succin SUSTAINE Hosp ital 200 MG ate D Extended RELEASE Release Oral Tablet Metoprolol Succinate 24 HR Metfor TABLET 500 ORAL complet White Metformin min 24 HR mg ed [place] hydrochlori Hcl SUSTAINE Hosp ital de 500 MG D Extended RELEASE Release Oral Tablet [Glucophage ] Metformin Hcl Insurance Providers Payer name Policy type Policy ID Covered Covered libertarian's Policy P ailyn / Coverage libertarian ID relationship to Elizabeth Inf ormation type elizabeth SAULO PagerDuty [id number] SP [id number] NON CAP Medicaid Managed [id number] Self [id number] Manage Care Care (Non-HMO) Medicaid 13 [id number] Self [id number] Manage Care Medicaid Managed [id number] Self [id number] Manage Care Care (Non-HMO) MEDICAID [id number] SP [id number] BETTER [id number] PT [id number] HEALTH/[employer] [facility] [id number] PT [id number] HEALTHCARE POS Medicaid [id number] Regular Clinic Visit [facility] [id number] Managed Care Problems, Conditions, and Diagnoses Code Display Name Description Problem Type Effective Data Sour ce(s) Dates Z86.14 Personal history of Personal history Diagnosis 12/21/2019 [facility] Methicillin of methicillin 12:00:00 AM ([facility] resistant resis staph EDT Extended Care Staphylococcus infection Center) aureus infection N40.0 Benign prostatic Benign prostatic Diagnosis 12/21/2019 SI [facility] hyperplasia without hyperplasia 12:00:00 AM ( gen lower urinary tract without lower EDT Ex tended Care symptoms urinry tract symp Center) E87.6 Hypokalemia Hypokalemia Diagnosis 12/21/2019 [facility] 12:00:00 AM ([facility] ED Extended [facility] [place]) E11.9 Type 2 diabetes Type 2 diabetes Diagnosis 12/21/2019 SIGM ACARE mellitus without mellitus without 12:00:00 AM ( [facility] complications complications EDT Extended Care [place]) E78.5 Hyperlipidemia, Hyperlipidemia, Diagnosis 12/21/2019 SIGM ACARE unspecified unspecified 12:00:00 AM ([facility] ED Extended [facility] [place]) I10 Essential (primary) Essential Diagnosis 12/21/2019 [facility] hypertension (primary) 12:00:00 AM ([facility] hypertension [facility] Extended Car e Center) 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 Dependence on Diagnosis 12/21/2019 SI [facility] dialysis renal dialysis 12:00:00 AM ([facility] Care [place]) D64.9 Anemia, unspecified Anemia, Diagnosis 12/21/2019 [facility] unspecified 12:00:00 AM ([facility] ED Extended [facility] [place]) Z29.9 Encounter for Encounter for Diagnosis 12/13/2019 SIGMACAR E prophylactic prophylactic 12:00:00 AM ([facility] measures, measures, EDT Extended Care unspecified unspecified Center) N18.6 End stage renal End stage renal Diagnosis 12/03/2019 SIGM ACARE disease disease 12:00:00 AM ([facility] ED Extended [facility]) Z41.9 Encounter for Encntr for proc Diagnosis 12/02/2019 SIGMAC ARE procedure for for purpose oth 12:00:00 AM (Rege ncy purposes other than than remedy [facility] EDT Extended Care [facility] Center) state, unspecified I33.9 Acute and subacute Acute and Diagnosis 12/02/2019 SIGMAC ARE endocarditis, subacute 12:00:00 AM ([facility] unspecified endocarditis, EDT Extended C are unspecified Center) N40.1 Benign prostatic Benign prostatic Diagnosis 12/02/2019 SI [facility] hyperplasia with hyperplasia with 12:00:00 AM ( [facility] lower urinary tract lower urinary EDT Ex tended Care symptoms tract symp Center) K21.9 Gastro-esophageal Gastro-esophageal Diagnosis 12/02/2019 [facility] reflux disease reflux disease 12:00:00 AM (Rege ncy without esophagitis without EDT Exten ded Care esophagitis Center) B37.2 Candidiasis of skin Candidiasis of Diagnosis 12/02/2019 S IGMACARE and nail skin and nail 12:00:00 AM ([facility] EDT Extended [facility] [place]) E61.2 Magnesium deficiency Magnesium Diagnosis 12/02/2019 SIGM [facility]00[facility]00 [facility] [place] J18.9 Pneumonia, Pneumonia, Diagnosis 12/02/2019 [facility] unspecified organism unspecified 12:00:00 AM (R egency organism EDT Extended Care [place]) E56.9 Vitamin deficiency, Vitamin Diagnosis 12/02/2019 [facility] unspecified deficiency, 12:00:00 AM ([facility] unspecified EDT Extended [facility] [place]) I48.91 Unspecified atrial Unspecified Diagnosis 12/02/2019 [facility] fibrillation atrial 12:00:00 AM ([facility] fibrillation EDT Extended Car e Center) R06.02 Shortness of breath Shortness of Diagnosis 12/02/2019 SIG [facility] breath [facility]:00:00 [facility] [place] M62.81 Muscle weakness Muscle weakness Diagnosis 12/02/2019 SIGM ACARE (generalized) (generalized) 12:00:00 AM ([facility] y EDT Extended Care Center) R52 Pain, unspecified Pain, unspecified Diagnosis 12/02/2019 [facility] 12:00:00 AM ([facility] EDT Extended [facility] [place]) Z00.00 Encounter for Encntr for Diagnosis 12/02/2019 SIG[facility] general adult general adult 12:00:00 AM ([facility] y medical examination medical exam w/o EDT Extended Care without abnormal abnormal findings C enter) findings Z11.1 Encounter for Encounter for Diagnosis 12/02/2019 SIGMACAR E screening for screening for 12:00:00 AM ([facility] y respiratory respiratory EDT Extended Car e tuberculosis tuberculosis Center) Z23 Encounter for Encounter for Diagnosis 12/02/2019 SIGMACAR E immunization immunization 12:00:00 AM ([facility] EDT Extended Care Center) B95.62 Methicillin Methicillin resis Diagnosis 12/02/2019 SIGMAC ARE resistant staph infct 12:00:00 AM ([facility] Staphylococcus causing diseases EDT Exte nded Care aureus infection as classd elswhr Ce nter) the cause of diseases classified elsewhere Z95.810 Presence of Z95.810 Diagnosis 10/30/2019 [place] automatic 05:42:00 PM Hospital (implantable) EDT cardiac defibrillator Z79.01 alf (current) Z79.01 Diagnosis 10/30/2019 [place] use of 05:42:00 PM Hospital anticoagulants EDT R33.9 Retention of urine, R33.9 Diagnosis 10/30/2019 [place] unspecified 05:42:00 PM Hospital EDT N32.0 Bladder-neck N32.0 Diagnosis 10/30/2019 [place] obstruction 05:42:00 PM Hospital EDT B35.6 Tinea cruris B35.6 Diagnosis 10/30/2019 [place] 05:42:00 PM Hospital EDT R65.20 Severe sepsis R65.20 Diagnosis 10/30/2019 [place] without septic shock 05:42:00 PM Hos pital EDT Z11.59 Encounter for Z11.59 Diagnosis 10/30/2019 [place] screening for other 05:42:00 PM Hosp ital viral diseases EDT I11.0 Hypertensive heart I11.0 Diagnosis 10/30/2019 [place] disease with heart 05:42:00 PM Hospi jah failure EDT R74.0 Nonspecific R74.0 Diagnosis 10/30/2019 [place] elevation of levels 05:42:00 PM Hosp ital of transaminase and EDT lactic acid dehydrogenase [LDH] I38 Endocarditis, valve I38 Diagnosis 10/30/2019 [place] unspecified 05:42:00 PM Hospital EDT E78.5 Hyperlipidemia, E78.5 Diagnosis 10/30/2019 [place] unspecified 05:42:00 PM Hospital EDT I26.90 Septic pulmonary I26.90 Diagnosis 10/30/[address] [place] embolism without 05:42:00 PM Hospita l acute cor pulmonale EDT I76 Septic arterial I76 Diagnosis 10/30/2019 [place] embolism 05:42:00 PM Hospital EDT Z68.37 Body mass index Z68.37 Diagnosis 10/30/2019 [place] (BMI) 37.0-37.9, 05:42:00 PM Hospita l adult EDT N39.0 Urinary tract N39.0 Diagnosis 10/30/2019 [place] infection, site not 05:42:00 PM Hosp ital specified EDT E66.9 Obesity, unspecified E66.9 Diagnosis 10/30/2019 [place] 05:42:00 PM Hospital EDT I42.8 Other I42.8 Diagnosis 10/30/2019 [place] cardiomyopathies 05:42:00 PM Hospita l EDT E11.65 Type 2 diabetes E11.65 Diagnosis 10/30/2019 [place] mellitus with 05:42:00 PM Hospital hyperglycemia EDT I50.22 Chronic systolic I50.22 Diagnosis 10/30/[address] [place] (congestive) heart 05:42:00 PM Hospi jah failure EDT 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/2019 [place] inappropriate 05:42:00 PM Hospital secretion of EDT antidiuretic hormone I48.91 Unspecified atrial I48.91 Diagnosis 10/30/2019 [place] fibrillation 05:42:00 PM Hospital EDT J15.9 Unspecified J15.9 Diagnosis 10/30/2019 [place] bacterial pneumonia 05:42:00 PM Hosp ital EDT J96.01 Acute respiratory J96.01 Diagnosis 10/30/2019 [place] failure with hypoxia 05:42:00 PM Hos pital EDT A41.02 Sepsis due to A41.02 Diagnosis 10/30/2019 [place] Methicillin 05:42:00 PM Hospital resistant EDT Staphylococcus aureus T82.7XXA Infection and T82.7XXA Diagnosis 10/30/2019 [place] inflammatory 05:42:00 PM Hospital reaction due to EDT other cardiac and vascular devices, implants and grafts, initial encounter 427.31 ATRIAL FIBRILLATION ATRIAL Diagnosis 06/12/2018 [place] ([place] FIBRILL[place] 03:42:56 PM [facility]) Surgeries/Procedures Procedure Description Date Indications Data Source(s) Echography of kidney 11/09/2019 [place] (procedure) 12:00:00 AM Hospital EDT Transesophageal 11/08/2019 [place] echocardiography (procedure) 12:00:00 AM Hospital EDT Electrocardiographic procedure 11/05/2019 [place] (procedure) 12:00:00 AM Hospital EDT Physical therapy procedure 11/02/2019 [place] [facility] [place] (regime/therapy) 12:00:00 AM Hospital EDT Continuous pulse oximetry 11/02/2019 [facility] [place] (procedure) 12:00:00 AM Hospital EDT Physical therapy procedure 11/01/2019 W ant [place] (regime/therapy) 12:00:00 AM Hospital EDT Echocardiography (procedure) 10/31/2019 [place] 12:00:00 AM Hospital EDT Oxygen therapy (procedure) 10/30/2019 [facility] [place] 12:00:00 AM Hospital EDT Noninvasive positive pressure 10/30/2019 [place] ventilation (procedure) 12:00:00 AM Hosp ital EDT Noninvasive positive pressure 10/30/2019 [place] ventilation (procedure) 12:00:00 AM Hosp ital EDT Oxygen therapy (procedure) 10/30/2019 [facility] [place] 12:00:00 AM Hospital EDT Computed tomography of abdomen 10/30/2019 [place] and pelvis with contrast 12:00:00 AM Hos pital (procedure) EDT Plain chest X-ray (procedure) 10/30/2019 [place] 12:00:00 AM Hospital EDT Computed tomography 10/30/[address] [place] angiography of thorax 12:00:00 AM Hospit al (procedure) EDT Computed tomography of 10/30/2019 [place] cervical spine without 12:00:00 AM Hospi jah contrast EDT Computed tomography of head 10/30/2019 [place] without contrast 12:00:00 AM Hospital EDT Oxygen therapy (procedure) 10/30/2019 [facility] [place] 12:00:00 AM Hospital EDT Electrocardiographic procedure 10/30/2019 [place] (procedure) 12:00:00 AM Hospital EDT Results ID Date Data Source [id number] 12/16/2019 03:35:00 AM EDT [facility] Name Value Range Interpretation Description Data Sup porting Code Source(s) Document(s ) SARS [facility] coronavirus 2 RNA This lab was ordered by [facility] and reported by [facility]. ID Date Data Source [id number] 11/29/2019 07:17:00 PM EDT [facility] Name Value Range Interpretation Code Description Data Lizy rce(s) Supporting Document(s ) SARS-CoV-2 [facility] RNA [facility] Ql STEFANIE+probe This lab was ordered by [facility] a nd reported by [facility]. ID Date Data Source [id number] 11/15/2019 10:47:00 PM EDT [facility] Name Value Range Interpretation Code Description Data Lizy rce(s) Supporting Document(s ) SARS-CoV-2 [facility] RNA [facility] Ql STEFANIE+probe This lab was ordered by [facility] a nd reported by [facility]. ID Date Data Source [id number] 11/09/2019 08:49:00 PM EDT [facility] Executive:DON PEREZ Name Value Range Interpretation Description Data Sup porting Code Source(s) Document(s ) Glucose 128 mg/dL [place] [Mass/volume] Hospital in Capillary blood by Glucometer ID Date Data Source [id number] 11/09/2019 09:21:00 AM EDT [facility] Name Value Range Interpretation Description Data Sup porting Code Source(s) Document(s ) Magnesium 2.1 mg/dL [place] [Mass/volume] Hospital in Serum or Plasma ID Date Data Source [id number] 11/09/2019 09:21:00 AM EDT [facility] Name Value Range Interpretation Description Data Sup porting Code Source(s) Document(s ) Calcium 8.2 mg/dL [place] [Mass/volume Hospital ] in Serum or Plasma ID Date Data Source [id number] 11/09/2019 09:21:00 AM EDT [facility] Name Value Range Interpretation Code Description Data Lizy rce(s) Supporting Document(s ) Urea 30.0 [place] nitrogen/Cre Hospital atinine [Mass Ratio] in Serum or Plasma ID Date Data Source [id number] 11/09/2019 09:21:00 AM EDT [facility] Name Value Range Interpretation Description Data Sup porting Code Source(s) Document(s ) Creatinine 0.6 mg/dL [place] [Mass/volume] Hospital in Serum or Plasma ID Date Data Source [id number] 11/09/2019 09:21:00 AM EDT [facility] Name Value Range Interpretation Description Data Sup porting Code Source(s) Document(s ) Urea 18 mg/dL [place] nitrogen Hospital [Mass/volume ] in Serum or Plasma ID Date Data Source [id number] 11/09/2019 09:21:00 AM EDT [facility] Name Value Range Interpretation Code Description Data Lizy rce(s) Supporting Document(s ) Anion gap in [address] [place] Serum [address] [facility] Plasma ID Date Data Source [id number] 11/09/2019 09:21:00 AM EDT [facility] Name Value Range Interpretation Description Data Sup porting Code Source(s) Document(s ) Carbon 26 mmol/L [place] dioxide, Hospital total [Moles/volu me] in Serum or Plasma ID Date Data Source [id number] 11/09/2019 09:21:00 AM EDT [facility] Name Value Range Interpretation Description Data Sup porting Code Source(s) Document(s ) Chloride 97 mmol/L [place] [Moles/volum Hospital e] in Serum or Plasma ID Date Data Source [id number] 11/09/2019 09:21:00 AM EDT [facility] Name Value Range Interpretation Description Data Sup porting Code Source(s) Document(s ) Potassium 5.2 [place] [Moles/volume mmol/L Hospital ] in Serum or Plasma ID Date Data Source [id number] 11/09/2019 09:21:00 AM EDT [facility] Value Range Interpretation Description Data Sup porting Code Source(s) Document(s ) Sodium 130 mmol/L [place] [Moles/volu [facility]] in Serum or Plasma ID Date Data Source [id number] 11/09[facility]2019 [facility] Description Data Sup porting Code Source(s) Document(s ) Glucose 115 mg/dL [place] [Mass/volume Hospital ] in Serum or Plasma ID Date Data Source [id number] 11/09/2019 [facility] Interpretation Description Data Sup porting Code Source(s) Document(s ) Platelet mean 10.0 fL [facility] [Entitic volume] in Blood by Automated count ID Date Data Source [id number] 11/09/2019 [facility] Interpretation Description Data Sup porting Code Source(s) Document(s ) Platelets 277 [place] [#/volume] in 10*3/uL Hospital Blood by Automated count ID Date Data Source [id number] 11/09/2019 09:[facility] Interpretation Description Data Sup porting Code Source(s) Document(s ) Erythrocyte 14.0 % [facility] Hospital width [Ratio] by Automated count ID Date Data Source [id number] 11/09/2019 [facility] Interpretation Description Data Sup porting Code Source(s) Document(s ) Erythrocyte mean 33.2 [place] corpuscular g/dL Hospital hemoglobin concentration [Mass/volume] by Automated count ID Date Data Source [id number] 11/09/2019 [facility] Value [facility] Interpretation Description Data Sup porting Code Source(s) Document(s ) Erythrocyte 30.5 pg [facility] corpuscular hemoglobin [Entitic mass] by Automated count ID Date Data Source [id number] 11/09/2019 09[facility]21[facility] Interpretation Description Data Sup porting Code Source(s) Document(s ) Erythrocyte 92.0 fL [facility] corpuscular volume [Entitic volume] by Automated count ID Date Data Source [id number] 11/09/2019 09:21:00 AM [facility] Value Range Interpretation Description Data Sup porting Code Source(s) Document(s ) Hematocrit 40.1 % [place] [Volume Hospital Fraction] of Blood by Automated count ID Date Data Source [id number] 11/09/2019 09:21:00 AM [facility] Value Range Interpretation Description Data Sup porting Code Source(s) Document(s ) Hemoglobin 13.3 g/dL [place] [Mass/volume] Hospital in Blood ID Date Data Source [id number] 11/09/2019 09:21:00 AM [facility] Value Range Interpretation Description Data Sup porting Code Source(s) Document(s ) Erythrocytes 4.36 [place] [#/volume] in 10*6/uL Hospital Blood by Automated count ID Date Data Source [id number] 11/09/2019 09:21:00 AM [facility] Value Range Interpretation Description Data Sup porting Code Source(s) Document(s ) Leukocytes 19.8 [place] [#/volume] in 10*3/uL Hospital Blood by Automated count ID Date Data Source [id number] 11/08/2019 06:58:00 PM EDT [place] [facility] Name Value Range Interpretation Description Data Sup porting Code Source(s) Document(s ) MEAN 90.9 fL [place] [facility] VOLUME ID Date Data Source [id number] 11/07/2019 06:25:00 AM [facility] Name Value Range Interpretation Description Data Sup porting Code Source(s) Document(s ) Cortisol 16.9 [place] [Mass/volume ug/dL Hospital ] in Serum or Plasma --AM peak specimen ID Date Data Source [id number] 11/07/2019 06:25:00 AM [facility] Name Value Range Interpretation Description Data Sup porting Code Source(s) Document(s ) Thyrotropin 2.530 [place] [Units/volume] u[IU]/mL Hospital in Serum or Plasma by Detection limit <= 0.005 mIU/L ID Date Data Source [id number] 11/06/2019 12:08:00 PM [facility] THERE ARE NO REFERENCE RANGES FOR RANDOM URINES. Name Value Range Interpretation Description Data Sup porting Code Source(s) Document(s ) Potassium 12.4 [place] [Moles/volume mmol/L Hospital ] in Urine ID Date Data Source [id number] 11/06/2019 12:08:00 PM [facility] THERE ARE NO REFERENCE RANGES FOR RANDOM URINES. Name Value Range Interpretation Description Data Sup porting Code Source(s) Document(s ) Sodium 62 mmol/L [place] [Moles/volu [facility]] in Urine ID Date Data Source [id number] 11/06/2019 12:08:00 PM [facility] Name Value Range Interpretation Description Data Sup porting Code Source(s) Document(s ) Osmolality of 360 [place] Urine mosm/kg Hospital ID Date Data Source [id number] 11/06/2019 08:26:00 AM EDT [facility] Name Value Range Interpretation Code Description Data Supporting Source(s) Document(s ) NUCLEATED RBCS 0.0 % [place] (AUTO Hospital DIFF%)DIS ID Date Data Source [id number] 11/06/2019 08:26:00 AM EDT [facility] Name Value Range Interpretation Description Data Sup porting Code Source(s) Document(s ) Differential MANUAL [place] cell count Hospital method - Blood ID Date Data Source [id number] 11/06/2019 08:26:00 AM EDT [facility] Value Range Interpretation Code Description Data Lizy rce(s) Supporting Document(s ) Cells 200 [place] Counted Hospital Total [#] in Blood ID Date Data Source [id number] 11/06/2019 08:26:00 AM EDT [facility] Value Range Interpretation Code Description Data Supporting Source(s) Document(s ) PLATELET NORMAL [place] COMMENT Hospital ID Date Data Source [id number] 11/06/2019 08:26:00 AM EDT [facility] Name Value Range Interpretation Description Data Sup porting Code Source(s) Document(s ) TOXIC 1+ [place] GRANULATION Hospital ID Date Data Source [id number] 11/06/2019 08:26:00 AM EDT [facility] Name Value Range Interpretation Code Description Data Lizy rce(s) Supporting Document(s ) RBC COMMENT NORMAL [place] Hospital ID Date Data Source [id number] 11/06/2019 08:26:00 AM EDT [facility] Name Value Range Interpretation Description Data Sup porting Code Source(s) Document(s ) Monocytes 0.92 [place] [#/volume] in 10*3/uL Hospital Blood by Manual count ID Date Data Source [id number] 11/06/2019 08:26:00 AM EDT [facility] Name Value Range Interpretation Description Data Sup porting Code Source(s) Document(s ) Lymphocytes 1.28 [place] [#/volume] in 10*3/uL Hospital Blood by Manual count ID Date Data Source [id number] 11/06/2019 08:26:00 AM EDT [facility] Value Range Interpretation Description Data Sup porting Code Source(s) Document(s ) Neutrophils 16.47 [place] [#/volume] in 10*3/uL Hospital Blood by Manual count ID Date Data Source [id number] 11/06/2019 08:26:00 AM EDT [facility] Value Range Interpretation Description Data Sup porting Code Source(s) Document(s ) Myelocytes/100 3 % [place] leukocytes in Hospital Blood by Manual count ID Date Data Source [id number] 11/06/2019 08:26:00 AM EDT [facility] Value Range Interpretation Description Data Sup porting Code Source(s) Document(s ) Metamyelocytes/ 1 % [place] 100 leukocytes Hospital in Blood by Manual count ID Date Data Source [id number] 11/06/2019 08:26:00 AM EDT [facility] Value Range Interpretation Description Data Sup porting Code Source(s) Document(s ) Monocytes/100 5 % [place] leukocytes in Hospital Blood by Manual count ID Date Data Source [id number] 11/06/2019 08:26:00 AM EDT [facility] Value Range Interpretation Description Data Sup porting Code Source(s) Document(s ) Lymphocytes/100 7 % [place] leukocytes in Hospital Blood by Manual count ID Date Data Source [id number] 11/06/2019 08:26:00 AM EDT [place] [facility] Name Value Range Interpretation Description Data Sup porting Code Source(s) Document(s ) Band form 1 % [place] neutrophils/100 Hospital leukocytes in Blood ID Date Data Source [id number] 11/06/2019 08:26:00 AM EDT [facility] Value Range Interpretation Description Data Sup porting Code Source(s) Document(s ) Neutrophils/100 85 % [place] leukocytes in Hospital Blood by Manual count ID Date Data Source [id number] 11/04/2019 08:46:00 AM EDT [facility] Value Range Interpretation Description Data Sup porting Code Source(s) Document(s ) Phosphate 3.2 mg/dL [place] [Mass/volume] Hospital in Serum or Plasma ID Date Data Source [id number] 11/04/2019 08:46:00 AM EDT [facility] Value Range Interpretation Description Data Sup porting Code Source(s) Document(s ) Aspartate 42 U/L [place] aminotransferase [place] [Enzymatic Hospital activity/volume] in Serum or Plasma ID Date Data Source [id number] 11/04/2019 08:46:00 AM EDT [facility] Value Range Interpretation Description Data Sup porting Code Source(s) Document(s ) Alanine 35 U/L [place] aminotransferase [place] [Enzymatic Hospital activity/volume] in Serum or Plasma ID Date Data Source [id number] 11/04/2019 08:46:00 AM EDT [facility] Name Value Range Interpretation Description Data Sup porting Code Source(s) Document(s ) Alkaline 75 U/L [place] phosphatase Hospital [Enzymatic activity/volume ] in Serum or Plasma ID Date Data Source [id number] 11/04/2019 08:46:00 AM EDT [facility] Value Range Interpretation Description Data Sup porting Code Source(s) Document(s ) Bilirubin.d 0.7 mg/dL [place] irect Hospital [Mass/volum e] in Serum or Plasma ID Date Data Source [id number] 11/04/2019 08:46:00 AM EDT [facility] Name Value Range Interpretation Description Data Sup porting Code Source(s) Document(s ) Bilirubin.t 1.2 mg/dL [facility] [Mass/volum e] in Serum or Plasma ID Date Data Source [id number] 11/04/2019 08:46:00 AM EDT [facility] Name Value Range Interpretation Code Description Data Lizy rce(s) Supporting Document(s ) Albumin/Glob 0.8 [place] ulin [Mass Hospital Ratio] in Serum or Plasma ID Date Data Source [id number] 11/04/2019 08:46:00 AM EDT [facility] Name Value Range Interpretation Description Data Sup porting Code Source(s) Document(s ) Albumin 2.4 g/dL [place] [Mass/volume Hospital ] in Serum or Plasma ID Date Data Source [id number] 11/04/2019 08:46:00 AM EDT [facility] Name Value Range Interpretation Description Data Sup porting Code Source(s) Document(s ) Protein 5.6 g/dL [place] [Mass/volume Hospital ] in Serum or Plasma ID Date Data Source [id number] 11/04/2019 08:46:00 AM EDT [facility] Name Value Range Interpretation Description Data Sup porting Code Source(s) Document(s ) Immature 1.80 [place] granulocytes 10*3/uL Hospital [#/volume] in Blood by Automated count ID Date Data Source [id number] 11/04/2019 08:46:00 AM EDT [facility] Name Value Range Interpretation Description Data Sup porting Code Source(s) Document(s ) Basophils 0.01 [place] [#/volume] in 10*3/uL Hospital Blood by Automated count ID Date Data Source [id number] 11/04/2019 08:46:00 AM EDT [facility] Name Value Range Interpretation Description Data Sup porting Code Source(s) Document(s ) Eosinophils 0.14 [place] [#/volume] in 10*3/uL Hospital Blood by Automated count ID Date Data Source [id number] 11/04/2019 08:46:00 AM EDT [facility] Value Range Interpretation Description Data Sup porting Code Source(s) Document(s ) Monocytes 0.89 [place] [#/volume] in 10*3/uL Hospital Blood by Automated count ID Date Data Source [id number] 11/04/2019 08:46:00 AM EDT [facility] Value Range Interpretation Description Data Sup porting Code Source(s) Document(s ) Lymphocytes 1.29 [place] [#/volume] in 10*3/uL Hospital Blood by Automated count ID Date Data Source [id number] 11/04/2019 08:46:00 AM EDT [facility] Value Range Interpretation Description Data Sup porting Code Source(s) Document(s ) Neutrophils 14.78 [place] [#/volume] in 10*3/uL Hospital Blood by Automated count ID Date Data Source [id number] 11/04/2019 08:46:00 AM EDT [facility] Value Range Interpretation Description Data Sup porting Code Source(s) Document(s ) Nucleated 0.0 % [place] erythrocytes/10 Hospital 0 leukocytes [Ratio] in Blood by Automated count ID Date Data Source [id number] 11/04/2019 08:46:00 AM EDT [facility] Value Range Interpretation Description Data Sup porting Code Source(s) Document(s ) Immature 9.5 % [place] granulocytes/10 Hospital 0 leukocytes in Blood by Automated count ID Date Data Source [id number] 11/04[facility] Interpretation Description Data Sup porting Code Source(s) Document(s ) Basophils/100 0.1 % [place] leukocytes in Hospital Blood by Automated count ID Date Data Source [id number] 11/04/2019 [facility] Name Value Range Interpretation Description Data Sup porting Code Source(s) Document(s ) Eosinophils/100 0.7 % [place] leukocytes in Hospital Blood by Automated count ID Date Data Source [id number] 11/04/2019 08:46:00 AM [facility] Value Range Interpretation Description Data Sup porting Code Source(s) Document(s ) Monocytes/100 4.7 % [place] leukocytes in Hospital Blood by Automated count ID Date Data Source [id number] 11/04/2019 08:46:00 AM [facility] Name Value Range Interpretation Description Data Sup porting Code Source(s) Document(s ) Lymphocytes/100 6.8 % [place] leukocytes in Hospital Blood by Automated count ID Date Data Source [id number] 11/04/2019 08:46:00 AM [facility] Name Value Range Interpretation Description Data Sup porting Code Source(s) Document(s ) Neutrophils/10 78.2 % [place] 0 leukocytes Hospital in Blood by Automated count ID Date Data Source [id number] 11/03/2019 04:15:00 PM [facility] NOTE: NEW REFERENCE RANGE, EFFECTIVE . Name Value Range Interpretation Description Data Sup porting Code Source(s) Document(s ) Vancomycin 16.4 [place] [Mass/volume] ug/mL Hospital in Serum or Plasma --trough ID Date Data Source [id number] 11/03/2019 09:59[facility] Name Value Range Interpretation Description Data Sup porting Code Source(s) Document(s ) Bacteria No growth [place] identified in Hospital Blood by Culture ID Date Data Source [id number] 11/03/2019 07:38:00 AM EDT [facility] Name Value Range Interpretation Description Data Sup porting Code Source(s) Document(s ) Digoxin 0.4 ng/mL [place] [Mass/volume Hospital ] in Serum or Plasma ID Date Data Source [id number] 11/03/2019 07:38:00 AM [facility] ADA RECOMMENDATIONS: NON-DIABETES: 4.0-6.0% CONTROLLED DIABETES: 6.0-8.0% UNCONTROLLED DIABETE S: UP TO 20%RECOMMENDED ADA RESULT FOR THERAPY: HEMOGLOBIN A1C RESULT LESS TOSHIA N 7%.NOTE: METHOD CHANGE EFFECTIVE 11/11/14. Name Value Range Interpretation Description Data Sup porting Code Source(s) Document(s ) Hemoglobin 6.2 % [place] A1c/Hemoglobin. Hospital total in Blood ID Date Data Source [id number] 11/03/2019 07:38:00 AM [facility] Value Range Interpretation Description Data Sup porting Code Source(s) Document(s ) OSMOLALITY 272 [place] (SERUM) mosm/kg Hospital ID Date Data Source [id number] 11/03/2019 07:38:[facility] Name Value Range Interpretation Description Data Sup porting Code Source(s) Document(s ) Platelet clump PRESENT [place] [Presence] in Hospital Blood by Light microscopy ID Date Data Source [id number] 11/03/2019 07[facility]38[facility] Value Range Interpretation Description Data Sup porting Code Source(s) Document(s ) Eosinophils 0.18 [place] [#/volume] in 10*3/uL Hospital Blood by Manual count ID Date Data Source [id number] 11/03/2019 07:38:00 AM EDT [facility] Name Value Range Interpretation Description Data Sup porting Code Source(s) Document(s ) Eosinophils/100 1 % [place] leukocytes in Hospital Blood by Manual count ID Date Data Source [id number] 10/31/2019 12:09:00 PM EDT [facility] Name Value Range Interpretation Description Data Sup porting Code Source(s) Document(s ) GLUCOSE RN Notified [facility] Hospital ID Date Data Source [id number] 10/30/2019 09:55:00 PM EDT [facility] Name Value Range Interpretation Description Data Sup porting Code Source(s) Document(s ) Thyroxine 1.6 ng/dL [facility] ([facility] [Mass/volume] in Serum or Plasma ID Date Data Source [id number] 10/30[facility]2019 [facility]FORMED BY [employer] [employer] ULTRA SENSITIVE CENTAUR CHEMILUMINESCENCE METHOD. Name Value Range Interpretation Description Data Sup porting Code Source(s) Document(s ) Troponin 0.15 [place] I.cardiac ng/mL Hospital [Mass/volume ] in Serum or Plasma ID Date Data Source [id number] 10/30/2019 08:48:00 PM EDT [facility] Name Value Range Interpretation Description Data Sup porting Code Source(s) Document(s ) Bacteria [facility]IN [facility] Culture ID Date Data Source [id number] 10/30/2019 08:48:00 PM EDT [facility] Name Value Range Interpretation Description Data Sup porting Code Source(s) Document(s ) Urate crystals 2+ [facility] [Presence] in Urine sediment by Light microscopy ID Date Data Source [id number] 10/30/2019 08:48:00 PM EDT [facility] Name Value Range Interpretation Description Data Sup porting Code Source(s) Document(s ) Epithelial OCCASIONAL [place] s [#/area] in Urine sediment by Microscopy high power field ID Date Data Source [id number] 10/30/2019 08:48:00 PM EDT [facility] Name Value Range Interpretation Description Data Sup porting Code Source(s) Document(s ) Bacteria 2+ [facility] [#/area] in Hospital Urine sediment by Microscopy high power field ID Date Data Source [id number] 10/30/2019 08:48:00 PM EDT [facility] Name Value Range Interpretation Description Data Sup porting Code Source(s) Document(s ) Erythrocytes 3-5 [facility] [#/area] in /[HPF] Hospital Urine sediment by Microscopy high power field ID Date Data Source [id number] 10/30/2019 08:48:00 PM EDT [facility] Name Value Range Interpretation Description Data Sup porting Code Source(s) Document(s ) Leukocytes >100 [facility] [#/area] in /[HPF] Hospital Urine sediment by Microscopy high power field ID Date Data Source [id number] 10/30/2019 08:48:00 PM EDT [facility] Name Value Range Interpretation Code Description Data Supporting Source(s) Document(s ) Leukocyte 3+ [facility] esterase Hospital [Presence] in Urine by Test strip ID Date Data Source [id number] 10/30/2019 08:48:00 PM EDT [facility] Name Value Range Interpretation Description Data Sup porting Code Source(s) Document(s ) URINE POSITIVE [facility] NITRITES Hospital ID Date Data Source [id number] 10/30/2019 08:48:00 PM EDT [facility] Name Value Range Interpretation Description Data Sup porting Code Source(s) Document(s ) Erythrocytes 2+ [facility] [#/volume] in Hospital Urine by Test strip ID Date Data Source [id number] 10/30/2019 08:48:00 PM EDT [facility] In addition to bilirubin, a positive res ult may be caused by metabolites of certain medications and by atypically colored ur ine samples. If clinically indicated, correlate positive results with serum li vania function tests. Name Value Range Interpretation Code Description Data Lizy rce(s) Supporting Document(s ) Bilirubin. POSITIVE [facility] total [facility] [Presence] in Urine by Test strip ID Date Data Source [id number] 10/30/2019 [facility] Name Value Range Interpretation Description Data Sup porting Code Source(s) Document(s ) Urobilinogen 1.0 [facility] [Units/volume] mg/dL Hospital in Urine by Test strip ID Date Data Source [id number] 10/30/2019 08:48:00 PM EDT [facility] Name Value Range Interpretation Code Description Data Lizy rce(s) Supporting Document(s ) Ketones TRACE [facility] [Mass/volume Hospital ] in Urine by Test strip ID Date Data Source [id number] 10/30/2019 08:48:00 PM EDT [facility] Name Value Range Interpretation Description Data Sup porting Code Source(s) Document(s ) Glucose NEGATIVE [facility] [Mass/volume Hospital ] in Urine by Test strip ID Date Data Source [id number] 10/30/2019 08:48:00 PM EDT [facility] Name Value Range Interpretation Code Description Data Lizy rce(s) Supporting Document(s ) Protein 1+ [facility] [Presence] Hospital in Urine by Test strip ID Date Data Source [id number] 10/30/2019 08:48:00 PM EDT [facility] Name Value Range Interpretation Code Description Data Lizy rce(s) Supporting Document(s ) pH of Urine 6.5 [facility] by Test Hospital strip ID Date Data Source [id number] 10/30/2019 08:48:00 PM EDT [facility] Name Value Range Interpretation Code Description Data Supporting Source(s) Document(s ) Specific 1.027 [facility] gravity of Hospital Urine by Test strip ID Date Data Source [id number] 10/30/2019 08:48:00 PM EDT [facility] Name Value Range Interpretation Description Data Sup porting Code Source(s) Document(s ) Clarity in Urine TURBID [facility] by Refractometry Hospital automated ID Date Data Source [id number] 10/30/2019 08:48:00 PM [facility] Name Value Range Interpretation Code Description Data Supporting Source(s) Document(s ) Color of DK YELLOW [facility] Urine Hospital ID Date Data Source [id number] 10/30/2019 08:33:[facility] Name Value Range Interpretation Description Data Sup porting Code Source(s) Document(s ) Lactate 1.8 [facility] [Moles/volum mmol/L Hospital e] in Serum or Plasma ID Date Data Source [id number] 10/30/2019 06:15:00 PM [facility] UNITS ARE IN ml/min/1.73m2.IF PATIENT IS -MALDIVIAN, MULTIPLY REPORTED RESULT BY 1.21. Name Value Range Interpretation Description Data Sup porting Code Source(s) Document(s ) Glomerular > 60 [facility] filtration mL/min Hospital rate/1.73 sq M.predicted [Volume Rate/Area] in Serum or Plasma by Creatinine-bas ed formula (MDRD) ID Date Data Source [id number] 10/30/2019 04:40:[facility] THERAPEUTIC RANGES:UNFRACTIONATED HEPARI N THERAPY: 60-90 SECONDSARGATROBAN THERAPY: 49-99 SECONDS Name Value Range Interpretation Description Data Sup porting Code Source(s) Document(s ) aPTT in 31.[address] [facility] Plate[address] [facility] plasma by Coagulation assay ID Date Data Source [id number] 10/30/2019 04:40:00 PM EDT [facility] THERAPEUTIC RANGE FOR STANDARD ORALANTIC OAGULANT THERAPY: 2.0-3.0THERAPEUTIC RANGE FOR HIGH DOSE ORALANTICOAGULANT THERAPY (MECHANICAL HEARTVALVE REPLACEMENT): 2.5-3.5 Name Value Range Interpretation Description Data Sup porting Code Source(s) Document(s ) INR in Platelet 1.5 [facility] poor plasma by Hospital Coagulation assay ID Date Data Source [id number] 10/30/2019 04:40:00 PM EDT [facility] Name Value Range Interpretation Description Data Sup porting Code Source(s) Document(s ) PT panel - 17.0 s [facility] Platelet poor [facility] plasma by Coagulation assay ID Date Data Source [id number] 10/30/2019 04:40:00 PM EDT [facility] Name Value Range Interpretation Description Data Sup porting Code Source(s) Document(s ) Manual MANUAL [facility] differential Hospital performed [Presence] in Blood ID Date Data Source [id number] 10/30/2019 04:40:[facility] Name Value Range Interpretation Description Data Sup porting Code Source(s) Document(s ) Platelets DECREASED [facility] [#/volume] in Hospital Blood by Estimate ID Date Data Source [id number] 10/30/2019 04:40:00 PM EDT [facility] Value Range Interpretation Description Data Sup porting Code Source(s) Document(s ) Platelet PRESENT [facility] finding [Identifier] in Blood ID Date Data Source [id number] 10/30/2019 04:40:00 PM EDT [facility] Value Range Interpretation Description Data Sup porting Code Source(s) Document(s ) NEUT. PRESENT [facility] Hospital ID Date Data Source [id number] 10/30/2019 04:40:00 PM EDT [facility] Value Range Interpretation Description Data Sup porting Code Source(s) Document(s ) POIKILOCYTOSIS [facility] ID Date Data Source [id number] 10/30/2019 04:40:00 PM EDT [facility] Value Range Interpretation Code Description Data Lizy rce(s) Supporting Document(s ) ANISOCYTOSIS [facility] ID Date Data Source [id number] 10/30[facility]2019 [facility] Interpretation Description Data Sup porting Code Source(s) Document(s ) Natriuretic 88.4 [place] peptide B pg/mL Hospital [Mass/volume] in Serum or Plasma ID Date Data Source [id number] 10/30/2019 [facility] Interpretation Code Description Data Lizy rce(s) Supporting Document(s ) READ BACK Yes/ [facility] ID Date Data Source [id number] 10/30/2019 [facility] Interpretation Code Description Data Lizy rce(s) Supporting Document(s ) NOTE WHO MD [facility] ID Date Data Source [id number] 10/30/2019 04:00:00 PM EDT [facility] Name Value Range Interpretation Description Data Sup porting Code Source(s) Document(s ) IONIZED 1.13 [facility] CALCIUM mmol/L Hospital ID Date Data Source [id number] 10/30/2019 04:00:00 PM EDT [facility] Name Value Range Interpretation Description Data Sup porting Code Source(s) Document(s ) LACTIC ACID 3.8 mmol/L [facility] (ABG) Hospital ID Date Data Source [id number] 10/30/2019 04:00:00 PM EDT [facility] Value Range Interpretation Code Description Data Supporting Source(s) Document(s ) METHEMOGLOBIN 0.5 % [facility] ID Date Data Source [id number] 10/30/2019 04:00:00 PM EDT [facility] Value Range Interpretation Description Data Sup porting Code Source(s) Document(s ) CARBOXYHEMOGLOBIN 1.5 % [facility] ID Date Data Source [id number] 10/30/2019 04:00:00 PM EDT [facility] Value Range Interpretation Code Description Data Lizy rce(s) Supporting Document(s ) ABG TEMP 98.0 [facility] ID Date Data Source [id number] 10/30/2019 04:00:00 PM EDT [facility] Value Range Interpretation Code Description Data Lizy rce(s) Supporting Document(s ) FIO2 100 % [facility] ID Date Data Source [id number] 10/30/2019 04:00:00 PM EDT [facility] Value Range Interpretation Code Description Data Lizy rce(s) Supporting Document(s ) ABG BE -1.1 mmol/L [facility] ID Date Data Source [id number] 10/30/2019 04:00:00 PM EDT [facility] Value Range Interpretation Code Description Data Lizy rce(s) Supporting Document(s ) ABG O2SAT 95 % [facility] ID Date Data Source [id number] 10/30/2019 04:00:00 PM EDT [facility] Value Range Interpretation Code Description Data Lizy rce(s) Supporting Document(s ) ABG HCO3 21 mmol/L [facility] ID Date Data Source [id number] 10/30/2019 04:00:00 PM EDT [facility] Value Range Interpretation Code Description Data Lizy rce(s) Supporting Document(s ) ABG PO2 70 mm[Hg] [facility] ID Date Data Source [id number] 10/30/2019 04:00:00 PM EDT [facility] Value Range Interpretation Code Description Data Lizy rce(s) Supporting Document(s ) ABG PCO2 29 mm[Hg] [facility] ID Date Data Source [id number] 10/30/2019 04:00:00 PM EDT [facility] Value Range Interpretation Code Description Data Lizy rce(s) Supporting Document(s ) ABG PH 7.48 [facility] ID Date Data Source [id number] 10/30/2019 04:00:00 PM EDT [facility] Value Range Interpretation Code Description Data Lizy rce(s) Supporting Document(s ) ABG MODE NRM [facility] ID Date Data Source [id number] 10/30/2019 04:00:00 PM EDT [facility] Value Range Interpretation Code Description Data Supporting Source(s) Document(s ) ABG SITE Right [facility] ID Date Data Source [id number] 10/30/2019 04:00:00 PM EDT [facility] Name Value Range Interpretation Code Description Data Supporting Source(s) Document(s ) ABG SOURCE ARTERIAL [facility] ID Date Data Source [id number] 10/30/2019 04:00:00 PM EDT [facility] Name Value Range Interpretation Code Description Data Lizy rce(s) Supporting Document(s ) FEDER[employer] TEST POSITIVE [facility] Procedure Social History Code Duration Value Status Description Data Source(s ) Smoking 10/30/2019 Never smoked completed [facility] tobacco (finding) Ho spital (finding) Vital Signs ID Date Data Source UNK Name Value Range Interpretation Code Description Data Source(s) Diastolic blood 66 mm[Hg] 66 mm[Hg] [facility] pressure Hospital Systolic blood 132 mm[Hg] 132 mm[Hg] [facility] ns [facility] Hospital Respiratory rate 20 /min 20 /min [facility] Heart rate 73 /min 73 /min [facility] Body temperature 36.[address] [facility] Body temperature 97.5 [degF] 97.5 [degF] [facility] Body mass index 34.0 kg/m2 34.0 kg/m2 [facility] ins (BMI) [Ratio] Hospital Body weight 262.13 262.13 [lb_av] [facility] [lb_av] Hospital Systolic blood 124 mm[Hg] 124 mm[Hg] [facility] Diastolic blood 62 mm[Hg] 62 mm[Hg] [facility] Respiratory rate 20 /min 20 /min [facility] Heart rate 86 /min 86 /min [facility] Respiratory rate 35 /min 35 /min [facility]
--- NOTE | 2019-12-27 21:29 | HP ---
Admitting History and Physical - Primary Care Physician PCP: Jass Iraheta - Admission Chief Complaint: Elevated Heart Rate History of Present Illness: This is a 59 y/o male with a significant past medical history of HTN, DM , Nonischemic cardiomyopathy (ICD replacement on 2014, EF 25-->50%), bacteremia s/p ICD removal (2 weeks ago), AFib (on Metoprolol). Who presented to the ED for rapid heart rate. Patient was seen by his food processing chemist Dr. Raimundo Paige this morning, and was sent here for Afib with RVR. Patient denies syncope, chest pain, nausea, vomiting, diaphoresis, headache, numbness. History Source: Patient Limitations to Obtaining History: No Limitations - Past Medical History Cardiovascular: Yes: AFIB, HTN, Hyperlipdemia, Other (Endocarditis) Gastrointestinal: Yes: GERD Renal/: Yes: BPH, Hemodialysis Infectious Disease: Yes: MRSA - Past Surgical History Past Surgical History: Yes: AICD - Smoking History Smoking history: Never smoked - Alcohol/Substance Use Hx Alcohol Use: No History of Substance Use: reports: None - Social History ADL: Support Services History of Recent Travel: No Home Medications - Allergies Allergies/Adverse Reactions: Allergies Allergy/AdvReac Type Severity Reaction Status Date / Time piperacillin [From Zosyn] Allergy Verified 12/16/19 19:56 sulfamethoxazole Allergy Verified 12/16/19 19:56 [From Bactrim] tazobactam [From Zosyn] Allergy Verified 12/16/19 19:56 trimethoprim [From Bactrim] Allergy Verified 12/16/19 19:56 - Home Medications Home Medications: Ambulatory Orders Acetaminophen [Tylenol] 650 mg PO QID PRN 12/15/19 Amiodarone HCl [Cordarone -] 200 mg PO DAILY 12/15/19 Linezolid [Zyvox] 600 mg PO BID 12/15/19 Magnesium Oxide [Mag-Ox -] 400 mg PO BID 12/15/19 Pantoprazole Sodium [Protonix] 40 mg PO BID 12/15/19 Tamsulosin HCl [Flomax -] 0.4 mg PO DAILY 12/15/19 Vitamin B Comp W-C [Nephro-Vee -] 1 tablet PO DAILY 12/15/19 Family Medical History Family History: Unable to Obtain Review of Systems - Review of Systems Constitutional: reports: No Symptoms Eyes: reports: No Symptoms HENT: reports: No Symptoms Neck: reports: No Symptoms Cardiovascular: reports: No Symptoms Respiratory: reports: No Symptoms Gastrointestinal: reports: No Symptoms Genitourinary: reports: No Symptoms Breasts: reports: No Symptoms Reported Musculoskeletal: reports: No Symptoms Integumentary: reports: No Symptoms Neurological: reports: No Symptoms Endocrine: reports: No Symptoms Hematology/Lymphatic: reports: No Symptoms Psychiatric: reports: No Symptoms Physical Examination Vital Signs: Vital Signs Temperature 98.2 F 12/27/19 15:59 Pulse Rate 102 H 12/27/19 18:01 Respiratory Rate 12/27/19 18:01 Blood Pressure 132/80 12/27/19 18:01 O2 Sat by Pulse Oximetry (%) 100 12/27/19 18:01 Constitutional: Yes: No Distress, Calm, Obese, Pallor Eyes: Yes: WNL, Conjunctiva Clear, EOM Intact, PERRL HENT: Yes: WNL, Atraumatic, Normocephalic Neck: Yes: WNL, Supple, Trachea Midline Cardiovascular: Yes: Tachycardia, Pulse Irregular, S1, S2 Respiratory: Yes: Regular, CTA Bilaterally Gastrointestinal: Yes: Normal Bowel Sounds, Soft, Abdomen, Obese, Hernia (reducible). No: Tenderness, Tenderness, Epigastrium ...Rectal Exam: Yes: Deferred Renal/: Yes: WNL Breast(s): Yes: WNL Musculoskeletal: Yes: WNL Edema: Yes Edema: LLE: 1+, RLE: 1+ Peripheral Pulses WNL: Yes Neurological: Yes: Confusion, Lethargy Labs: CBC, BMP 12/27/19 16:57 12/27/19 16:57 Laboratory Results - last 24 hr 12/27/19 12/27/19 12/27/19 16:57 16:57 16:57 WBC 8.6 RBC 2.67 L Hgb 8.3 L Hct 24.6 L MCV 92.4 MCH 30.9 MCHC 33.5 RDW 15.1 Plt Count 79 L D MPV 8.9 Absolute Neuts (auto) 7.1 Neutrophils % 82.4 D Lymphocytes % 12.4 D Monocytes % 4.5 Eosinophils % 0.4 D Basophils % 0.3 Nucleated RBC % 0 PT with INR 12.00 INR 1.02 PTT (Actin FS) 16.6 L Sodium 138 Potassium 3.5 Chloride 97 L Carbon Dioxide 27 Anion Gap 13 BUN 34.9 H Creatinine 1.4 H Est GFR (CKD-EPI)AfAm 62.40 Est GFR (CKD-EPI)NonAf 53.84 Random Glucose 105 Calcium 8.5 Total Bilirubin 0.7 AST 26 ALT 36 Alkaline Phosphatase 88 Troponin I < 0.02 Total Protein 6.1 L Albumin 3.0 L Blood Type Antibody Screen 12/27/19 12/28/19 16:57 00:30 WBC RBC Hgb Hct MCV MCH MCHC RDW Plt Count MPV Absolute Neuts (auto) Neutrophils % Lymphocytes % Monocytes % Eosinophils % Basophils % Nucleated RBC % PT with INR INR PTT (Actin FS) Sodium Potassium Chloride Carbon Dioxide Anion Gap BUN Creatinine Est GFR (CKD-EPI)AfAm Est GFR (CKD-EPI)NonAf Random Glucose Calcium Total Bilirubin AST ALT Alkaline Phosphatase Troponin I < 0.02 Total Protein Albumin Blood Type A POSITIVE Antibody Screen Negative Intake & Output 12/25/19 12/26/19 12/27/19 12/28/19 23:59 23:59 23:59 23:59 Weight 108.862 kg Imaging - Results Chest X-ray: Image Reviewed EKG: Image Reviewed Problem List - Problems (1) Atrial fibrillation with RVR Code(s): I48.91 - UNSPECIFIED ATRIAL FIBRILLATION (2) ESRD (end stage renal disease) on dialysis Code(s): N18.6 - END STAGE RENAL DISEASE; Z99.2 - DEPENDENCE ON RENAL DIALYSIS (3) BPH (benign prostatic hyperplasia) Code(s): N40.0 - BENIGN PROSTATIC HYPERPLASIA WITHOUT LOWER URINRY TRACT SYMP (4) Diabetes mellitus Code(s): E11.9 - TYPE 2 DIABETES MELLITUS WITHOUT COMPLICATIONS (5) HLD (hyperlipidemia) Code(s): E78.5 - HYPERLIPIDEMIA, UNSPECIFIED (6) HTN (hypertension) Code(s): I10 - ESSENTIAL (PRIMARY) HYPERTENSION (7) Hx MRSA infection Code(s): Z86.14 - PERSONAL HISTORY OF METHICILLIN RESIS STAPH INFECTION (8) Encounter for screening laboratory testing for COVID-19 virus Code(s): Z11.59 - ENCOUNTER FOR SCREENING FOR OTHER VIRAL DISEASES Assessment/Plan This is a 59 y/o male with a significant past medical history of HTN, DM , Nonischemic cardiomyopathy (ICD replacement on 2014, EF 25-->50%), bacteremia s/p ICD removal (2 weeks ago), AFib (on Metoprolol). Admitted to Telemetry for Afib with RVR for further evaluation of their emergent condition. Plan: Admit Telemetry Serial Enzymes Clinical Ob aware and is following EKG reviewed afib with RVR Chest Xray image- no acute pathology noted Given Metoprolol po and Cardizem IV in ED- rate improved Continue home meds [id number] 3 FEN- Po fluids as tolerated, Replete lytes prn, Low Na Diet DVT ppx- OOB, SCDs, Hold AC secondary to Thrombocytopenia Dispo: Requires Inpatient Care Visit type - Emergency Visit Emergency Visit: Yes ED Registration Date: 12/27/19 Care time: The patient presented to the Emergency Department on the above date and was hospitalized for further evaluation of their emergent condition. - New Patient This patient is new to me today: Yes Date on this admission: 12/27/19 - Critical Care Critical Care patient: No
[2019-12-27] MEDS ORDERED: METOPROLOL TARTRATE 50 MG TABLET (FP) ONE (23:03)
[2019-12-27] MEDS: METOPROLOL TARTRATE 50 MG TABLET (FP) PO SCH (23:08)
[2019-12-28] MEDS: NYSTATIN POWDER 100,000 UNITS/GM - 15 GM TOPICAL POWDER TP SCH ×3 (06:30→22:34)
[2019-12-28 07:41] LABS: BASO % 0.6 % (0-2.0); EOS % 3.8 % (0-4.5); HEMOGLOBIN 9.1 GM/dL (11.7-16.9); LYMPH % 23.8 % (8-40); MCH 31.4 pg (25.7-33.7); MCHC 33.7 g/dl (32.0-35.9); MEAN CELL VOLUME 93.2 fl (80-96); MONO % 6.9 % (3.8-10.2); NEUT % 64.9 % (42.8-82.8); PLATELET COUNT 151 K/MM3 (134-434); RDW 15.4 % (11.9-15.9); WHITE BLOOD COUNT 7.7 K/mm3 (4.0-10.0)
[2019-12-28 08:33] LABS: ALBUMIN 2.6 g/dl (3.4-5.0); ALK PHOS 86 U/L (45-117); ANION GAP 7 MMOL/L (8-16); BILIRUBIN,TOTAL 0.9 mg/dL (0.2-1); BLOOD UREA NITROGEN 27.8 mg/dL (7-18); CALCIUM 8.3 mg/dL (8.5-10.1); CHLORIDE 100 mmol/L (98-107); CO2 34 mmol/L (21-32); CREATININE 1.3 mg/dL (0.55-1.3); GLUCOSE,RANDOM 84 mg/dL (74-106); MAGNESIUM 1.6 mg/dL (1.8-2.4); POTASSIUM 3.4 mmol/L (3.5-5.1); SGOT/AST 19 U/L (15-37); SGPT/ALT 31 U/L (13-61); SODIUM 141 mmol/L (136-145); TOT PROT 5.8 g/dl (6.4-8.2)
[2019-12-28] MEDS ORDERED: PANTOPRAZOLE 40 MG TABLET ONE (08:54)
[2019-12-28] MEDS ORDERED: TAMSULOSIN HCL 0.4 MG CAP ONE (08:54)
[2019-12-28] MEDS ORDERED: METOPROLOL TARTRATE 50 MG TABLET (FP) ONE (08:54)
[2019-12-28] MEDS: TAMSULOSIN HCL 0.4 MG CAP PO SCH (09:00)
--- NOTE | 2019-12-28 09:53 | CON.CARD ---
Consult Consult Specialty:: Cardiology Referred by:: Hospitalist Service Reason for Consultation:: Cardiac evaluation - History of Present Illness Chief Complaint: AF with RVR History of Present Illness: Patient is a 59 year old male seen by Dr. Raimundo Paige ([facility]) yesterday in the office and sent in for management of AF with RVR. 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 He was admitted to [facility] in October with pneumonia, UTI and MRSA endocarditis, infected device and septic shock. He was transferred to [facility] and needed pressor support. AICD was removed at [facility]. He was also transfused PRBC due to GI blood loss (duodenal ulcer). He was treated with antibiotic course. Prior to this hospitalization, he was taking Metoprolol, Digoxin and Cardizem for rate control. He also states that he had been on various anticoagulation regimen including Warfarin, then Xarelto and then Eliquis which all caused GI bleed. He was found to be in rapid AF in the office when seen by Dr. Paige, therefore, he was advised to be admitted for further management. Currently, his HR has slowed compared to yesterday. He denies chest pain, short ness of breath or palpitations. He denies fever or chills. He denies nausea, vomiting, diarrhea or abdominal pain. He denies headache or lightheadedness. He was formerly seen by Dr. Thad Akers and Dr. Houston Drew both guest services associate affiliated with [facility] in the past. - History Source History Provided By: Patient, Medical Record Limitations to Obtaining History: No Limitations - Past Medical History Cardio/Vascular: Yes: AFIB, HTN, Hyperlipdemia, Other (Endocarditis) Gastrointestinal: Yes: GERD Renal/: Yes: BPH, Hemodialysis Infectious Disease: Yes: MRSA - Past Surgical History Past Surgical History: Yes: AICD (Explanted) - Alcohol/Substance Use Hx Alcohol Use: No History of Substance Use: reports: None - Smoking History Smoking history: Never smoked - Social History ADL: Support Services History of Recent Travel: No Home Medications - Allergies Allergies/Adverse Reactions: Allergies Allergy/AdvReac Type Severity Reaction Status Date / Time piperacillin [From Zosyn] Allergy Verified 12/16/19 19:56 sulfamethoxazole Allergy Verified 12/16/19 19:56 [From Bactrim] tazobactam [From Zosyn] Allergy Verified 12/16/19 19:56 trimethoprim [From Bactrim] Allergy Verified 12/16/19 19:56 - Home Medications Home Medications: Ambulatory Orders Acetaminophen [Tylenol] 650 mg PO QID PRN 12/15/19 Amiodarone HCl [Cordarone -] 200 mg PO DAILY 12/15/19 Linezolid [Zyvox] 600 mg PO BID 12/15/19 Magnesium Oxide [Mag-Ox -] 400 mg PO BID 12/15/19 Pantoprazole Sodium [Protonix] 40 mg PO BID 12/15/19 Tamsulosin HCl [Flomax -] 0.4 mg PO DAILY 12/15/19 Vitamin B Comp W-C [Nephro-Vee -] 1 tablet PO DAILY 12/15/19 Family Medical History Family History: Denies Review of Systems - Review of Systems Constitutional: denies: Chills, Fever Cardiovascular: reports: Palpitations. denies: Chest Pain, Shortness of Breath Respiratory: denies: Cough, Hemoptysis, Orthopnea, PND, SOB, SOB on Exertion, Wheezing Gastrointestinal: denies: Abdominal Pain, Constipation, Diarrhea, Melena, Nausea, Rectal Bleeding, Vomiting Musculoskeletal: denies: Back Pain, Joint Pain Neurological: denies: Dizziness, Headache, Seizure, Syncope Vital Signs: Vital Signs Temperature 98.1 F 12/28/19 06:30 Pulse Rate 82 12/28/19 06:30 Respiratory Rate 20 12/28/19 06:30 Blood Pressure 129/77 12/28/19 06:30 O2 Sat by Pulse Oximetry (%) 98 12/28/19 06:30 Neck: Yes: Supple Respiratory: Yes: CTA Bilaterally Gastrointestinal: Yes: Normal Bowel Sounds, Soft. No: Tenderness Cardiovascular: Yes: Pulse Irregular JVD: No PMI: Non-Displaced Heart Sounds: Yes: S1, S2. No: Gallop Edema: No - Other Data Labs, Other Data: CBC, BMP 12/28/19 07:00 12/28/19 07:00 INR, PTT INR 1.02 (0.83-1.09) 12/27/19 16:57 Troponin, BNP 12/27/19 12/28/19 12/28/19 16:57 00:30 07:00 Troponin I < 0.02 < 0.02 < 0.02 Atrial fibrillation Imaging - Results Chest X-ray: Report Reviewed (Unremarkable) EKG: Report Reviewed Problem List - Problems (1) Atrial fibrillation with RVR Code(s): I48.91 - UNSPECIFIED ATRIAL FIBRILLATION (2) Anemia Code(s): D64.9 - ANEMIA, UNSPECIFIED (3) HLD (hyperlipidemia) Code(s): E78.5 - HYPERLIPIDEMIA, UNSPECIFIED (4) HTN (hypertension) Code(s): I10 - ESSENTIAL (PRIMARY) HYPERTENSION (5) Hx MRSA infection Code(s): Z86.14 - PERSONAL HISTORY OF METHICILLIN RESIS STAPH INFECTION Assessment/Plan 1. Persistent AF with RVR 2. Anemia referable to GI bleed and duodenal ulcer 3. Resolved non-ischemic dilated cardiomyopathy 4. ICD endocarditis and septic shock s/p explantation of ICD 5. Acute on CKD history of HD currently stabilized 6. HTN 7. Hypercholesterolemia PLAN: 1. Continue Metoprolol Tartrate 50 mg BID and add Cardizem 30 mg Q8 hrs as tolerated. Would not choose Digoxin as an initial choice for rate control 2. Discontinue Amiodarone as patient is not on anticoagulation and unclear whether he would be able to take it due to reasons below 3. Currently not able to use anticoagulation due to GI blood loss and anemia. If not able to be anticoagulated, may consider ANDREAS occlusion device (Watchman device) in view of elevated risk score. 4. GI prophylaxis Further plans are to follow Anshu Perkins MD
[2019-12-28] MEDS: METOPROLOL TARTRATE 50 MG TABLET (FP) PO SCH ×2 (10:50→21:57)
[2019-12-28] MEDS: PANTOPRAZOLE 40 MG TABLET PO SCH ×2 (10:50→21:57)
--- NOTE | 2019-12-28 12:36 | PN ---
Progress Note (short form) - Note Progress Note: events noted no chest pain or dizziness Pt not on anticoagulation due to GI bleed Vital Signs - 24 hr 12/27/19 12/27/19 12/27/19 15:59 18:01 23:00 Temperature 98.2 F Pulse Rate 135 H Pulse Rate [ 102 H 86 Apical] Respiratory 20 20 18 Rate Blood Pressure 120/80 Blood Pressure 132/80 124/84 [Left Arm] O2 Sat by Pulse 100 100 98 Oximetry (%) 12/28/19 12/28/19 12/28/19 03:30 06:30 12:22 Temperature 98.1 F Pulse Rate Pulse Rate [ 64 82 83 Apical] Respiratory 16 20 20 Rate Blood Pressure Blood Pressure 127/85 129/77 137/81 [Left Arm] O2 Sat by Pulse 98 98 98 Oximetry (%) 12/28/19 14:18 Temperature 98.2 F Pulse Rate 98 H Pulse Rate [ Apical] Respiratory 18 Rate Blood Pressure 132/85 Blood Pressure [Left Arm] O2 Sat by Pulse 98 Oximetry (%) Current Medications Generic Name Dose Route Start Last Admin Trade Name Freq PRN Reason Stop Dose Admin Diltiazem HCl 10 mg 12/27/19 17:06 12/27/19 17:30 Cardizem Injection - IVPUSH 10 mg Q4H PRN Administration TACHYCARDIA Metoprolol Tartrate 50 mg 12/27/19 22:00 12/28/19 10:50 Lopressor - PO 50 mg BID CEDRIC Administration Nystatin 1 applic 12/28/19 06:00 12/28/19 06:30 Nystop Powder - TP 1 applic TID CEDRIC Administration Pantoprazole Sodium 40 mg 12/28/19 10:00 12/28/19 10:50 Protonix - PO 40 mg BID CEDRIC Administration Tamsulosin HCl 0.4 mg 12/28/19 08:30 12/28/19 09:00 Flomax - PO 0.4 mg DAILY@0830 CEDRIC Administration Laboratory Results - last 24 hr 12/27/19 12/27/19 12/27/19 16:57 16:57 16:57 WBC 8.6 RBC 2.67 L Hgb 8.3 L Hct 24.6 L MCV 92.4 MCH 30.9 MCHC 33.5 RDW 15.1 Plt Count 79 L D MPV 8.9 Absolute Neuts (auto) 7.1 Neutrophils % 82.4 D Lymphocytes % 12.4 D Monocytes % 4.5 Eosinophils % 0.4 D Basophils % 0.3 Nucleated RBC % 0 PT with INR 12.00 INR 1.02 PTT (Actin FS) 16.6 L Sodium 138 Potassium 3.5 Chloride 97 L Carbon Dioxide 27 Anion Gap 13 BUN 34.9 H Creatinine 1.4 H Est GFR (CKD-EPI)AfAm 62.40 Est GFR (CKD-EPI)NonAf 53.84 Random Glucose 105 Calcium 8.5 Magnesium Total Bilirubin 0.7 AST 26 ALT 36 Alkaline Phosphatase 88 Troponin I < 0.02 Total Protein 6.1 L Albumin 3.0 L TSH Blood Type Antibody Screen 12/27/19 12/28/19 12/28/19 16:57 00:30 07:00 WBC 7.7 RBC 2.90 L Hgb 9.1 L Hct 27.0 L MCV 93.2 MCH 31.4 MCHC 33.7 RDW 15.4 Plt Count 151 D MPV 8.0 D Absolute Neuts (auto) 5.0 Neutrophils % 64.9 D Lymphocytes % 23.8 D Monocytes % 6.9 Eosinophils % 3.8 D Basophils % 0.6 Nucleated RBC % 0 PT with INR INR PTT (Actin FS) Sodium Potassium Chloride Carbon Dioxide Anion Gap BUN Creatinine Est GFR (CKD-EPI)AfAm Est GFR (CKD-EPI)NonAf Random Glucose Calcium Magnesium Total Bilirubin AST ALT Alkaline Phosphatase Troponin I < 0.02 Total Protein Albumin TSH Blood Type A POSITIVE Antibody Screen Negative 12/28/19 07:00 WBC RBC Hgb Hct MCV MCH MCHC RDW Plt Count MPV Absolute Neuts (auto) Neutrophils % Lymphocytes % Monocytes % Eosinophils % Basophils % Nucleated RBC % PT with INR INR PTT (Actin FS) Sodium 141 Potassium 3.4 L Chloride 100 Carbon Dioxide 34 H Anion Gap 7 L BUN 27.8 H Creatinine 1.3 Est GFR (CKD-EPI)AfAm 68.25 Est GFR (CKD-EPI)NonAf 58.89 Random Glucose 84 Calcium 8.3 L Magnesium 1.6 L Total Bilirubin 0.9 AST 19 ALT 31 Alkaline Phosphatase 86 Troponin I < 0.02 Total Protein 5.8 L Albumin 2.6 L TSH 2.82 Blood Type Antibody Screen S1 S2 Irregular Lungs clear Abd- soft, NT No edema right permacath A/P Rapid Afib s/p acute kidney injury HTN anemia MRSA endocarditis -- rate control -- pt does not want to be on anticoagulation due to recurrent gi bleeding, hematuria he was on coumadin, xarelto , eliquis previously --will consult Nephrology for possible removal of permacath- last dialysis was two weeks ago-- renal function improved -- continue with Linezolid for MRSA endocarditis Problem List - Problems (1) Atrial fibrillation with RVR Code(s): I48.91 - UNSPECIFIED ATRIAL FIBRILLATION (2) Anemia Code(s): D64.9 - ANEMIA, UNSPECIFIED (3) Encounter for screening laboratory testing for COVID-19 virus Code(s): Z11.59 - ENCOUNTER FOR SCREENING FOR OTHER VIRAL DISEASES (4) Hemodialysis status Code(s): Z99.2 - DEPENDENCE ON RENAL DIALYSIS (5) Hx MRSA infection Code(s): Z86.14 - PERSONAL HISTORY OF METHICILLIN RESIS STAPH INFECTION
[2019-12-28] MEDS ORDERED: POTASSIUM CHLORIDE TABS 20 MEQ TABLET.ER (FP) PO ONE (16:05)
[2019-12-28] MEDS ORDERED: MAGNESIUM SULF 50% (8.12 MEQ/2 ML-1 GM VIAL) IVPB ONE (16:05)
[2019-12-28] MEDS ORDERED: PT OWN MED DRAWER 7, Y5N ONE ×2 (17:23→20:56)
--- NOTE | 2019-12-28 17:30 | CON.NEP ---
Consult Consult Specialty:: nephrology Reason for Consultation:: ALLYOSN previously on HD - History of Present Illness Chief Complaint: rapid heart rate History of Present Illness: Pt is well known to me. He developed sepsis, endocarditis etc and had ALLYSON requ iring HD, but renal function improved and he was taken off HD 2 weeks ago. Still has a permcath. Was admitted with afib with RVR - Past Medical History Cardio/Vascular: Yes: AFIB, HTN, Hyperlipdemia, Other (Endocarditis) Gastrointestinal: Yes: GERD Renal/: Yes: BPH, Hemodialysis Infectious Disease: Yes: MRSA - Past Surgical History Past Surgical History: Yes: AICD - Alcohol/Substance Use Hx Alcohol Use: No History of Substance Use: reports: None - Smoking History Smoking history: Never smoked - Social History ADL: Support Services History of Recent Travel: No Home Medications - Allergies Allergies/Adverse Reactions: Allergies Allergy/AdvReac Type Severity Reaction Status Date / Time piperacillin [From Zosyn] Allergy Verified 12/16/19 19:56 sulfamethoxazole Allergy Verified 12/16/19 19:56 [From Bactrim] tazobactam [From Zosyn] Allergy Verified 12/16/19 19:56 trimethoprim [From Bactrim] Allergy Verified 12/16/19 19:56 - Home Medications Home Medications: Ambulatory Orders Acetaminophen [Tylenol] 650 mg PO QID PRN 12/15/19 Amiodarone HCl [Cordarone -] 200 mg PO DAILY 12/15/19 Linezolid [Zyvox] 600 mg PO BID 12/15/19 Magnesium Oxide [Mag-Ox -] 400 mg PO BID 12/15/19 Pantoprazole Sodium [Protonix] 40 mg PO BID 12/15/19 Tamsulosin HCl [Flomax -] 0.4 mg PO DAILY 12/15/19 Vitamin B Comp W-C [Nephro-Vee -] 1 tablet PO DAILY 12/15/19 Review of Systems - Review of Systems Constitutional: reports: No Symptoms Eyes: reports: No Symptoms HENT: reports: No Symptoms Neck: reports: No Symptoms Cardiovascular: reports: Palpitations Respiratory: reports: No Symptoms Gastrointestinal: reports: No Symptoms Genitourinary: reports: No Symptoms Breasts: reports: No Symptoms Reported Musculoskeletal: reports: No Symptoms Integumentary: reports: No Symptoms Neurological: reports: No Symptoms Endocrine: reports: No Symptoms Hematology/Lymphatic: reports: No Symptoms Psychiatric: reports: No Symptoms Nephrology Consult - Height Height: 5 ft 11 in - Weight Weight: 240 lb - BMI Body Mass Index (BMI): 33.5 - Lab Results CBC,BMP: CBC, BMP 12/28/19 07:00 12/28/19 07:00 Anion Gap: Anion Gap Anion Gap 7 MMOL/L (8-16) L 12/28/19 07:00 - Imaging Chest X-ray: Report Reviewed - Physical Examination Vital Signs: Vital Signs Temperature 98.2 F 12/28/19 14:18 Pulse Rate 98 H 12/28/19 14:18 Respiratory Rate 18 12/28/19 14:18 Blood Pressure 132/85 12/28/19 14:18 O2 Sat by Pulse Oximetry (%) 98 12/28/19 14:18 Constitutional: Yes: Well Nourished, No Distress Eyes: Yes: Conjunctiva Clear HENT: Yes: Atraumatic, Normocephalic Neck: Yes: Supple, Trachea Midline Cardiovascular: Yes: Pulse Irregular Respiratory: Yes: Regular, CTA Bilaterally Gastrointestinal: Yes: Normal Bowel Sounds Access for Hemodialysis: Permacath Extremities: Yes: WNL Edema: No Integumentary: Yes: WNL Neurological: Yes: Alert, Oriented Psychiatric: Yes: Alert, Oriented Assessment/Plan IMPRESSION Rapid Afib recent GI bleed ALLYSON resolved h/o endocarditis hypokalemia PLAN please have vascular surgery remove permcath replace K
[2019-12-28] MEDS: MAGNESIUM OXIDE 400 MG TABLET (FP) PO SCH (21:57)
[2019-12-28] MEDS: LINEZOLID 600 MG TABLET (RESTRICTED TO ID) PO SCH (21:58)
[2019-12-29] MEDS: NYSTATIN POWDER 100,000 UNITS/GM - 15 GM TOPICAL POWDER TP SCH ×2 (06:14→13:26)
[2019-12-29] MEDS: TAMSULOSIN HCL 0.4 MG CAP PO SCH (09:37)
[2019-12-29] MEDS: METOPROLOL TARTRATE 50 MG TABLET (FP) PO SCH (09:37)
[2019-12-29] MEDS: PANTOPRAZOLE 40 MG TABLET PO SCH (09:37)
[2019-12-29] MEDS: MAGNESIUM OXIDE 400 MG TABLET (FP) PO SCH (09:38)
[2019-12-29] MEDS: LINEZOLID 600 MG TABLET (RESTRICTED TO ID) PO SCH (09:38)
[2019-12-29] MEDS ORDERED: AMIODARONE HCL 200 MG TABLET PO SCH (10:00)
--- NOTE | 2019-12-29 11:34 | PN ---
Progress Note, Physician History of Present Illness: Right-sided PC removed, afib with improved rate-control, denies chest pain, dyspnea, palpitations. - Current Medication List Current Medications: Active Medications Diltiazem HCl (Cardizem Injection -) 10 mg IVPUSH Q4H PRN PRN Reason: TACHYCARDIA Last Admin: 12/27/19 17:30 Dose: 10 mg Documented by: Linezolid (Zyvox (Restricted To Id) -) 600 mg PO BID [facility] Last Admin: 12/29/19 09:38 Dose: 600 mg Documented by: Magnesium Oxide (Mag-Ox -) 400 mg PO BID [facility] Last Admin: 12/29/19 09:38 Dose: 400 mg Documented by: Metoprolol Tartrate (Lopressor -) 50 mg PO BID [facility] Last Admin: 12/29/19 09:37 Dose: 50 mg Documented by: Nystatin (Nystop Powder -) 1 applic TP TID [facility] Last Admin: 12/29/19 06:14 Dose: 1 applic Documented by: Pantoprazole Sodium (Protonix -) 40 mg PO BID [facility] Last Admin: 12/29/19 09:37 Dose: 40 mg Documented by: Tamsulosin HCl (Flomax -) 0.4 mg PO DAILY@0830 [facility] Last Admin: 12/29/19 09:37 Dose: 0.4 mg Documented by: - Objective Vital Signs: Vital Signs Temperature 98 F 12/29/19 09:00 Pulse Rate 108 H 12/29/19 09:00 Respiratory Rate 20 12/29/19 09:00 Blood Pressure 115/65 12/29/19 09:00 O2 Sat by Pulse Oximetry (%) 99 12/29/19 09:00 Constitutional: Yes: No Distress, Calm Neck: Yes: Supple Cardiovascular: Yes: Pulse Irregular Respiratory: Yes: Regular, CTA Bilaterally Gastrointestinal: Yes: Normal Bowel Sounds, Soft Edema: No Labs: CBC, BMP 12/28/19 07:00 12/28/19 07:00 INR, PTT INR 1.02 (0.83-1.09) 12/27/19 16:57 - ....Imaging EKG: Report Reviewed (Tele: Afib 90s) Assessment/Plan Problem List - Problems (1) Atrial fibrillation with RVR Code(s): I48.91 - UNSPECIFIED ATRIAL FIBRILLATION (2) Anemia Code(s): D64.9 - ANEMIA, UNSPECIFIED (3) HLD (hyperlipidemia) Code(s): E78.5 - HYPERLIPIDEMIA, UNSPECIFIED (4) HTN (hypertension) Code(s): I10 - ESSENTIAL (PRIMARY) HYPERTENSION (5) Hx MRSA infection Code(s): Z86.14 - PERSONAL HISTORY OF METHICILLIN RESIS STAPH INFECTION Assessment/Plan 1. Persistent AF with RVR 2. Anemia referable to GI bleed and duodenal ulcer 3. Resolved non-ischemic dilated cardiomyopathy 4. ICD endocarditis and septic shock s/p explantation of ICD 5. Acute on CKD history of HD currently stabilized, PC d/suzanna 6. HTN 7. Hypercholesterolemia PLAN: 1. Continue Metoprolol Tartrate 50 mg BID with IV Cardizem as needed and add Cardizem CD 120 qd as tolerated. Would not choose Digoxin as an initial choice for rate control, discontinued Amiodarone 2. Currently not able to use anticoagulation due to GI blood loss and anemia. If not able to be anticoagulated, may consider ANDREAS occlusion device (Watchman device) in view of elevated risk score. 3. GI prophylaxis 4. Complete abx course for MRSA ICD endocarditis 4. D/c planning back to [facility] with f/u in cardiology office
--- NOTE | 2019-12-29 13:17 | PROC ---
Procedure Note Procedure: 59 yo M with Rt IJ permacath placed 3 weeks was requested to Vascular service for removal as pt no longer required HD. Catheter was clean with alcohol. Sutures were removed. Catheter was removed with direct pressure. Pressure was held until hemostasis. Clean dressing placed. Pt tolerated the procedure well with minimal blood loss. Please reconsult vascular team if any issues.
--- NOTE | 2019-12-29 13:23 | DS ---
Physical Examination Vital Signs: Vital Signs Temperature 98 F 12/29/19 09:00 Pulse Rate 108 H 12/29/19 09:00 Respiratory Rate 20 12/29/19 09:00 Blood Pressure 115/65 12/29/19 09:00 O2 Sat by Pulse Oximetry (%) 99 12/29/19 09:00 Constitutional: Yes: No Distress, Calm Cardiovascular: Yes: Regular Rate and Rhythm Respiratory: Yes: CTA Bilaterally Gastrointestinal: Yes: Normal Bowel Sounds, Soft. No: Tenderness Edema: No Labs: CBC, BMP 12/28/19 07:00 12/28/19 07:00 Discharge Summary Problems reviewed: Yes Reason For Visit: ATRIAL FIBRILLATION Current Active Problems A-fib (Acute) Atrial fibrillation with RVR (Acute) Hospital Course: - Admission Chief Complaint: Elevated Heart Rate History of Present Illness: This is a 59 y/o male with a significant past medical history of HTN, DM , Nonischemic cardiomyopathy (ICD replacement on 2014, EF 25-->50%), bacteremia s/p ICD removal (2 weeks ago), AFib (on Metoprolol). Who presented to the ED for rapid heart rate. 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 Raimundo Paige this morning, and was sent here for Afib with RVR. Patient denies syncope, chest pain, nausea, vomiting, diaphoresis, headache, numbness. Hospital course-- pt admitted to telemetry seen by Cardiology -- started on Cardizem CD Pt is on Metoprolol \DC Amiodarone His permacath removed today as he is no longer on dialysis and kidney function recovered Pt has completed linezolid as well for MRSA endocarditis Stable for dc to [place] Condition: Good - Instructions Referrals: Jass Iraheta MD [Primary Care Provider] - Disposition: [facility] FACILITY - Home Medications Comprehensive Discharge Medication List: Ambulatory Orders Acetaminophen [Tylenol] 650 mg PO QID PRN 12/15/19 Linezolid [Zyvox] 600 mg PO BID 12/15/19 Magnesium Oxide [Mag-Ox -] 400 mg PO BID 12/15/19 Pantoprazole Sodium [Protonix] 40 mg PO BID 12/15/19 Tamsulosin HCl [Flomax -] 0.4 mg PO DAILY 12/15/19 Diltiazem Cd [Cardizem Cd -] 120 mg PO DAILY #30 cap.cd.24h 12/29/19
[2019-12-29 15:05] VITALS: BP 107/66; PULSE 94; TEMP 98
== END 2019-12-29 17:47 ==
LOC: JER 15:54 → JERBED 19:24 → INTOOBSV 19:24 → UNDOADMOB 19:24 → JERBED 12-28 11:09 → J4W 12-28 13:18
PROVIDERS: ADMIT Internal Medicine; ATTEND Internal Medicine
PROC: 0JPT0XZ Removal of Tunneled Vascular Access Device from Trunk Subcutaneous Tissue and Fascia, Open Approach (ICD-10-PCS; principal; 2019-12-28)
PROC: 3E033GC Introduction of Other Therapeutic Substance into Peripheral Vein, Percutaneous Approach (ICD-10-PCS; 2019-12-28)
DX: I48.91 Unspecified atrial fibrillation (principal); I38 Endocarditis, valve unspecified; I42.8 Other cardiomyopathies; E87.6 Hypokalemia; D64.9 Anemia, unspecified; E78.5 Hyperlipidemia, unspecified; Z86.14 Personal history of Methicillin resistant Staphylococcus aureus infection; I10 Essential (primary) hypertension; Z88.1 Allergy status to other antibiotic agents; K21.9 Gastro-esophageal reflux disease without esophagitis; N40.0 Benign prostatic hyperplasia without lower urinary tract symptoms; Z99.2 Dependence on renal dialysis; Z95.810 Presence of automatic (implantable) cardiac defibrillator; E78.00 Pure hypercholesterolemia, unspecified; E11.9 Type 2 diabetes mellitus without complications; N17.9 Acute kidney failure, unspecified
CPT/HCPCS: 36415; 36590; 71045-TC-FY; 80053; 83735; 84443; 84484; 85025; 85610; 85730; 86850; 86900; 86901; 96374; 96375; 97116-GP; 97161-GP; 99285-25; G0378; U0003